=== PATIENT | female | born 1965 | race Caucasian/White ===

== ENCOUNTER 2017-08-04 21:38 | Emergency (ER) | payer BC ==
[2015-02-25 13:42] VITALS: Ht 170.2 cm; Wt 77.1 kg
[~2017-08-04] VITALS: Ht 170.2 cm; Wt 77.1 kg
[~2017-08-04 21:38] MED LIST: ACE500 PO; ACET-1935 PO; ADV100/50 INH; ADV250/50 INH; ALB17R INH; ALB18R INH; ALB6.7R INH; ALBU8.5H12 IH; ALP1 PO; AMI25 PO; AMO500 PO; AMOX-355 PO; AMOX-559 PO; ARTHRITIS MED; ATOR10TA24 PO; ATOR20TA22 PO; AUG250 PO; AUG875 PO; AZI250 PO; AZIT1PAC21 PO; AZIT500T47 PO; BAC10 PO; BACDS PO; BENZ100C4 PO; BENZ200C15 PO; BENZ200C38 PO; BUDE1AMP2 IH; BUTA1CAP7 PO; C PAP; CALC-1 PO; CALC-797 PO; CEP500 PO; CETI-169 PO; CETI10CA8 PO; CETI5TAB22 PO; CIPR-214 PO; CIPR-344 PO; CLO1 PO; CLO5 PO; CLON-303 *; COCO1000 PO; COLE625T15 PO; CYC10 PO; DAR100 PO; DEX4 PO; DIA5 PO; DIC10 PO; DICL-195 PO; DICY-42 PO; DICY10CA62 PO; DIP25 PO; DIPH-1 PO; DIV500 PO; DIVA250T83 PO; DIVA500T97 PO; DOCU-299 PO; DON PO; DOXY-179 PO; DOXY150T6 PO; DUL30 PO; DULO30CA35 PO; DULO60CA56 PO; EPIN0.3P14 IM; ESCI5TAB10 PO; EST3 PO; ESZO3TAB37 PO; EZE10 PO; EZET1TAB64 PO; FENT1PAT40 TD; FLU10 PO; FLUO40CA76 PO; FLUT16SP19 NS; FLUT1DIS27 IH; FORM20VI2 IH; FUR40 PO; GAB300 PO; GUALA600 PO; HYDR-317 PO; HYDR-3250 PO; HYDR-3613 PO; HYDR-4309 PO; HYDR25CA83 PO; HYDR473S4 PO; IBU600 PO; IBUP-1618 PO; IBUP-56 PO; IBUP800T37 PO; INDO-1 PO; ISOM1CAP94 PO; KET10 PO; LANS30CA70 PO; LEVO25TA56; LEVO25TA64 PO; LEVO50 PO; LEVO50TA86 PO; LIDO700A25 TP; LISI-362 PO; LIT300 PO; LOM PO; LOPE-147 PO; LOPE2CAP88 PO; LOR1 PO; LOR10/325 PO; LOR5/325 PO; LOR75 GT; LORA-1455 PO; LORA-941 PO; LORA10TA2 PO; MECL25TA9 PO; MELO-149; MELO-149 PO; MELO-150 PO; MELO-205 PO; MELO7.5O4 PO; MEP50 PO; MEPE50TA29 PO; MET850 PO; METH-542 PO; METH4TAB57 PO; METHO500 PO; METR-1 PO; MID PO; MOMR; MOMR ENA; MONT10TA22 PO; NAP250 PO; NAPR220C12 PO; NAS20R NS; NEURONTIN; NITR-1 PO; OMEG-97 PO; OMEP-125 PO; OMEP-153 PO; OMEP40CA45 PO; OND4 PO; ONDA4TAB PO; ONDA8TAB91 PO; OXYC-689 PO; OXYC-763 PO; OXYC-869 PO; OXYC-870 PO; OXYGEN; OXYGEN INH; OXYIR PO; PAL3PT PO; PAN20 PO; PAN40 PO; PENI-24 PO; PER PO; PERCOCET PO; PHEN120S16 PO; PHEN95TA10 PO; POTA99TA6 PO; PRA20 PO; PRE10 PO; PRE20 PO; PRE5 PO; PRED-1 PO; PRED-314 PO; PRED20TA6 PO; PREG75CA61 PO; PRO25 PO; PROAIRPT IH; PROP40TA45 PO; RANI-324 PO; RANI75TA5 PO; RISP-34 PO; ROS10 PO; SER50 PO; SILV20CR2 TP; SITA1TAB16 PO; SULF-120 PO; SULF-198 PO; TRA50 PO; TRAZ-133 PO; TRAZ-163 PO; TRAZ50 PO; VEN375 PO; VER100 PO; [UNRECOGNIZED DRUG - CODE] IM; [UNRECOGNIZED DRUG - CODE] PO; [UNRECOGNIZED DRUG - CODE] PO; [UNRECOGNIZED DRUG - OTHER]
--- NOTE | 2017-08-04 21:41 | ER Report ---
History and Physical Time Seen By MD: 21:40 HPI/ROS CHIEF COMPLAINT: Intermittent chest pain 4 days HISTORY OF PRESENT ILLNESS: 51-year-old female presents ambulatory to the ER complaining of intermittent chest pain for 4 days. She notes tonight is become constant and more intense. She's had some shortness of breath, some nausea but no diaphoresis. She states she has a history of bradycardia and was seen by Dr. Fofana, death surveys coder in the distant past. She does not have a pacemaker.. She notes a dull chest pain with occasional sharp shooting component. She describes it as it feels like an elephant sitting on her chest. She notes radiation to her left arm with some numbness. Patient denies other history of cardiac disease. She has history of fibromyalgia REVIEW OF SYSTEMS: Respiratory: No cough, no dyspnea. Cardiovascular: As above Gastrointestinal: As above Musculoskeletal: No back pain. Allergies: Coded Allergies: BEE STINGS (Verified Allergy, Severe, AIRWAY OBSTRUCTION, 08/04/17) erythromycin base (Verified Allergy, Severe, SEIZURES AND VOMITING, 08/04/17 ) hydromorphone (Verified Allergy, Severe, SWELLS UP LIKE A BALOON AND ITCHES REAL BAD, 08/04/17) ketorolac (Verified Allergy, Severe, VOMITING SWELLING UP EYES, 08/04/17) morphine (Verified Allergy, Severe, HEADACHES AND ITCHINESS AND SWELLING, 08/04/17) pregabalin (Verified Allergy, Severe, MIGRAINES, 08/04/17) sumatriptan (Verified Allergy, Severe, THROAT SWELLS SHUT AND SHE STOPS BREATHING, 08/04/17) codeine (Verified Allergy, Intermediate, HIVES AND ITCHINESS, 08/04/17) promethazine (Verified Allergy, Intermediate, 08/04/17) tramadol (Verified Allergy, Mild, NAUSEA, 08/04/17) nalbuphine (Verified Adverse Reaction, Mild, WIRED HER, 08/04/17) Home Meds Active Scripts Diphenoxylate Hcl/Atropine (LOMOTIL TABLET) 1 Each Tablet, 1 EACH PO 1-3XD, #30 TAB 3 Refills Prov:MANJULA BARRON SURGICAL SERVICES COORDINATOR-BC, ONC 04/23/17 Indomethacin (INDOMETHACIN) 25 Mg Capsule, 25 MG PO DIRECTED Y for HEADACHE, #30 CAPSULE Take 1 tab 30-60 minutes prior to activity Prov:KP MANN SURGICAL SERVICES COORDINATOR 04/20/17 Reported Medications Propranolol Hcl (PROPRANOLOL HCL) 40 Mg Tablet, 40 MG PO BID 05/14/17 Trazodone Hcl (TRAZODONE HCL) 100 Mg Tablet, 100 MG PO QHS, TAB 03/20/17 Duloxetine Hcl (CYMBALTA) 60 Mg Capsule.dr, 60 MG PO QDAY, #5 CAP 03/20/17 Atorvastatin Calcium (LIPITOR) 10 Mg Tablet, 1 TAB PO QDAY, TAB 03/20/17 Calcium Carbonate/Vitamin D3 (CALTRATE 600 + D TABLET) 1 Each Tablet, 1 EACH PO HS 08/08/16 Past Medical/Surgical History Patient has a past medical history of CVA, seizures, migraines, angina, hyperlipidemia, asthma, pneumonia, COPD, rectal cancer, reflux, cholelithiasis, urinary incontinence, osteomyelitis, fibromyalgia, osteoporosis, back pain, diabetes, hypothyroidism, alcohol use, suicidal ideation, depression, anxiety, anorexia, suicide attempt. Patient has a surgical history of carpal tunnel release, cyst removed, hysterectomy, hemorrhoid surgery, cholecystectomy, appendectomy, laparoscopy. Patient has a family medical history of cancer, CAD, diabetes. Reviewed Nurses Notes: Yes Old Medical Records Reviewed: Yes Hx Smoking: Yes (3-4 daily) Smoking Status: Current: Every Day Smoker Exposure to Second Hand Smoke?: Yes Hx Substance Use Disorder: No Hx Alcohol Use: Yes (rare) Constitutional Vital Sign - Last 24 Hours 08/04/17 08/04/17 08/04/17 08/04/17 21:44 21:45 22:00 22:30 Temp 98.4 Pulse 67 Resp 18 B/P (MAP) 135/70 135/70 (91) 116/89 (98) 121/56 (77) Pulse Ox 93 O2 Delivery Room Air 08/04/17 08/04/17 08/04/17 08/04/17 22:38 22:58 22:58 23:00 Pulse 66 60 Resp 13 17 B/P (MAP) 107/59 (75) Pulse Ox 88 92 O2 Flow Rate 1.0 08/04/17 08/04/17 08/04/17 23:13 23:26 23:28 Pulse 61 64 Resp 19 9 B/P (MAP) 99/50 (66) Pulse Ox 92 Physical Exam Vital signs stable, afebrile, pulse ox normal General Appearance: The patient is alert, has no immediate need for airway protection and no current signs of toxicity. Mild distress HEENT: Pupils equal and round no injection. TMs normal, oropharynx without redness or exudate Respiratory: Chest is non tender, lungs are clear to auscultation. Chest wall tenderness noted on palpation along the costosternal margin, especially on the left sternal border Cardiac: regular rate and rhythm, no murmur Gastrointestinal: Abdomen is soft and non tender, no masses, bowel sounds normal. Musculoskeletal: Neck: Neck is supple and non tender. No lymphadenopathy Extremities have full range of motion and are non tender. No edema, no calf tenderness Skin: No rashes or lesions. DIFFERENTIAL DIAGNOSIS: After history and physical exam differential diagnosis was considered for chest pain including but not limited to myocardial ischemia, pericarditis pulmonary embolus, chest wall pain, pleural inflammation and pulmonary infectious causes. Medical Decision Making Data Points Result Diagram: 08/04/17220108/04/172201 Laboratory Hematology Test 08/04/17 22:02 Red Blood Count 4.82 M/uL (4.17-5.56) Mean Corpuscular Volume 89.1 fL (80.0-96.0) Mean Corpuscular Hemoglobin 30.5 pg (26.0-33.0) Mean Corpuscular Hemoglobin Concent 34.3 g/dL (32.0-36.0) Red Cell Distribution Width 13.6 % (11.5-14.5) Mean Platelet Volume 7.4 fL (7.2-11.1) Neutrophils (%) (Auto) 68.6 % (39.4-72.5) Lymphocytes (%) (Auto) 22.2 % (17.6-49.6) Monocytes (%) (Auto) 6.0 % (4.1-12.4) Eosinophils (%) (Auto) 2.2 % (0.4-6.7) Basophils (%) (Auto) 1.0 % (0.3-1.4) Nucleated RBC Relative Count (auto) 0.0 /100WBC Neutrophils # (Auto) 7.6 K/uL (2.0-7.4) Lymphocytes # (Auto) 2.5 K/uL (1.3-3.6) Monocytes # (Auto) 0.7 K/uL (0.3-1.0) Eosinophils # (Auto) 0.2 K/uL (0.0-0.5) Basophils # (Auto) 0.1 K/uL (0.0-0.1) Nucleated RBC Absolute Count (auto) 0.00 K/uL D-Dimer Quantitative (PE/DVT) < 0.27 ug/ml (0-0.50) Sodium Level 142 mmol/L (137-145) Potassium Level 3.5 mmol/L (3.5-5.0) Chloride Level 106 mmol/L (98-107) Carbon Dioxide Level 28 mmol/L (22-31) Blood Urea Nitrogen 12 mg/dl (7-18) Creatinine 0.70 mg/dl (0.52-1.04) Glomerular Filtration Rate Calc > 60.0 Random Glucose 108 mg/dl (75-110) Calcium Level 9.0 mg/dl (8.4-10.2) Total Bilirubin 0.3 mg/dl (0.2-1.3) Aspartate Amino Transf (AST/SGOT) 24 U/L (0-35) Alanine Aminotransferase (ALT/SGPT) 26 U/L (0-56) Alkaline Phosphatase 106 U/L (0-126) Troponin I < 0.012 ng/ml B-Type Natriuretic Peptide 113 pg/ml (0-100) Total Protein 6.6 gm/dl (6.3-8.2) Albumin 3.7 g/dl (3.5-5.0) Chemistry Test 08/04/17 22:02 White Blood Count 11.1 k/uL (4.5-11.0) Red Blood Count 4.82 M/uL (4.17-5.56) Hemoglobin 14.7 g/dL (12.0-16.0) Hematocrit 42.9 % (34.0-47.0) Mean Corpuscular Volume 89.1 fL (80.0-96.0) Mean Corpuscular Hemoglobin 30.5 pg (26.0-33.0) Mean Corpuscular Hemoglobin Concent 34.3 g/dL (32.0-36.0) Red Cell Distribution Width 13.6 % (11.5-14.5) Platelet Count 276 K/uL (150-450) Mean Platelet Volume 7.4 fL (7.2-11.1) Neutrophils (%) (Auto) 68.6 % (39.4-72.5) Lymphocytes (%) (Auto) 22.2 % (17.6-49.6) Monocytes (%) (Auto) 6.0 % (4.1-12.4) Eosinophils (%) (Auto) 2.2 % (0.4-6.7) Basophils (%) (Auto) 1.0 % (0.3-1.4) Nucleated RBC Relative Count (auto) 0.0 /100WBC Neutrophils # (Auto) 7.6 K/uL (2.0-7.4) Lymphocytes # (Auto) 2.5 K/uL (1.3-3.6) Monocytes # (Auto) 0.7 K/uL (0.3-1.0) Eosinophils # (Auto) 0.2 K/uL (0.0-0.5) Basophils # (Auto) 0.1 K/uL (0.0-0.1) Nucleated RBC Absolute Count (auto) 0.00 K/uL D-Dimer Quantitative (PE/DVT) < 0.27 ug/ml (0-0.50) Glomerular Filtration Rate Calc > 60.0 Calcium Level 9.0 mg/dl (8.4-10.2) Total Bilirubin 0.3 mg/dl (0.2-1.3) Aspartate Amino Transf (AST/SGOT) 24 U/L (0-35) Alanine Aminotransferase (ALT/SGPT) 26 U/L (0-56) Alkaline Phosphatase 106 U/L (0-126) Troponin I < 0.012 ng/ml B-Type Natriuretic Peptide 113 pg/ml (0-100) Total Protein 6.6 gm/dl (6.3-8.2) Albumin 3.7 g/dl (3.5-5.0) Coagulation Test 08/04/17 22:02 D-Dimer Quantitative (PE/DVT) < 0.27 ug/ml EKG/Imaging EKG Interpretation 12 lead EK, O2 Rhythm: normal sinus rhythm [place]: normal QRS: normal ST segments: normal, no evidence of ischemia or dysrhythmia, diffuse T- wave flattening Imaging X-ray: Two-view chest x-ray was obtained. I viewed the images myself on the PACS system. My interpretation of the images is: No infiltrate, no effusion, normal mediastinum. The radiologist interpretation had no clinically significant variation from this interpretation. ED Course/Re-evaluation Clinical Indication for ER IV: IV Access ED Course Patient was admitted to an examination room. H&P was done. The differential diagnoses was considered. On clinical examination. Patient has mild chest wall tenderness. She does have history of fibromyalgia. An EKG is performed which is unremarkable. Diagnostic studies show normal troponin and d-dimer. Patient's BMP is mildly elevated. Her chest x-ray is clear. Patient declines medication for pain relief. She has numerous allergies and sensitivities. Patient's results are discussed with her. She is reassured that she has no serious medical problems involved in pulmonary embolism or cardiac issues. She is advised to take ibuprofen for pain relief which she states she can take. She was offered steroids in case this is a flare of her fibromyalgia, but she declined. Patient's advised to follow-up with primary care if unimproved in 3- 5 days. Decision to Disposition Date: Aug 04, 2017 Decision to Disposition Time: 23:19 Depart Departure Latest Vital Signs Vital Signs Date Time Temp Pulse Resp B/P (MAP) Pulse Ox O2 Delivery O2 Flow Rate FiO2 08/04/17 23:28 64 9 08/04/17 23:26 99/50 (66) 08/04/17 23:13 92 08/04/17 22:58 1.0 08/04/17 21:44 98.4 Room Air Impression: Primary Impression: Chest pain of unknown etiology Additional Impression: History of fibromyalgia Condition: Improved Disposition: HOME OR SELF-CARE Patient Instructions: Chest Wall Pain (ED) Additional Instructions: Take ibuprofen 200 mg 3 tablets 3 times a day with food Apply heating pad to the affected area Follow-up with your primary care Dr. Yi if unimproved in 3-5 days Problem Qualifiers ASAD COLEMAN DO Aug 04, 2017 21:40
[2017-08-04] MEDS ORDERED: ASPIRIN 81 MG CHEW PO ONE (21:55)
[2017-08-04] MEDS ORDERED: ONDANSETRON 4 MG/2 ML VIAL IVP ONE (21:55)
[2017-08-04] MEDS ORDERED: KETOROLAC 30 MG/ML VIAL IVP ONE (21:55)
[2017-08-04 22:13] LABS: PLATELET COUNT, AUTOMATED 276 K/uL (150-450)
--- NOTE | 2017-08-04 22:34 | RADIOLOGY IMAGING REPORT ---
FAC[place] [facility] [place]IENT NAME: Sugar Charles : 1965 MR: [id number] V: [id number] EXAM DATE: ORDERING PHYSICIAN: ASAD COLEMAN TECHNOLOGIST: Location: [facility] - [place] Patient: Sugar Charles : 1965 Visit/Account:[id number] Date of Sevice: 08/04/2017 EXAMINATION: Chest 2 Views HISTORY: Chest pain. COMPARISON: 02/03/2017. FINDINGS: The lungs are clear. No focal consolidation or pleural fluid. No pneumothorax. Normal cardiomedias tinal silhouette, with normal heart size and pulmonary vascularity. Visualized osseous structures ar e unremarkable. IMPRESSION: Negative chest. Report Dictated By: Yuan Krueger MD at 08/04/2017 10:27 PM Report E-Signed By: Yuan Krueger MD at 08/04/2017 10:29 PM [id number]
[2017-08-04 23:26] VITALS: BP 99/50
--- NOTE | 2017-08-05 00:31 | EKG ---
FACILITY: [facility] PATIENT NAME: HUY REEVES : [id number] MR: [id number] V: [id number] EXAM DATE: ORDERING PHYSICIAN: ASAD COLEMAN TECHNOLOGIST: NERI Minor Reason : CARDIAC Blood Pressure : / mmHG Vent. Rate : 062 BPM Atrial Rate : 062 BPM P-R Int : 148 ms QRS Dur : 088 ms QT Int : 424 ms P-R-T Axes : 048 053 032 degrees QTc Int : 430 ms Normal sinus rhythm Poor R wave progression Abnormal ECG When compared with ECG of 03-FEB-2017 14:07, No significant change was found Confirmed by MELLISA VO ([id number]) on 08/05/2017 6:49:55 AM Referred By: Confirmed By:MELLISA VO
== END 2017-08-04 23:33 | disposition home or self-care (01) ==
LOC: ER 21:41
DX: R07.89 Other chest pain (principal)
CPT/HCPCS: 71046; 83880; 84484; 85025; 85379; 93005; 96374; 99284; J2405; 82040; 82247; 82310; 82374; 82435; 82565; 82947; 84075; 84132; 84155; 84295; 84450; 84460; 84520

== ENCOUNTER 2017-09-01 07:12 | Emergency (ER) | payer BC ==
[2015-02-25 13:42] VITALS: Ht 165.1 cm; Wt 79.8 kg
[~2017-09-01] VITALS: Ht 165.1 cm; Wt 79.8 kg
--- NOTE | 2017-09-01 07:27 | ER Report ---
History and Physical Time Seen By MD: 07:27 Hx. of Stated Complaint: RED, ITCHY BUMPS ON CHEST AND LEGS HPI/ROS CHIEF COMPLAINT: rash HISTORY OF PRESENT ILLNESS: This is a 51 year old female. She has a rash, mainly on chest/abdominal area, but also on legs, arms and back. Very itch. Started about 4 weeks ago after traveling. No other family members with the rash. Has been seen for this. Has been using oral benadryl, benadryl cream, and was put on a course of Prednisone which did not help. No recent illnesses. No shortness of breath or cough. No problems with urination. Bowels alternate between constipation and diarrhea, but this is normal for her. No chest pains. No musculoskeletal pain with this. Allergies: Coded Allergies: BEE STINGS (Verified Allergy, Severe, AIRWAY OBSTRUCTION, 08/04/17) erythromycin base (Verified Allergy, Severe, SEIZURES AND VOMITING, 08/04/17 ) hydromorphone (Verified Allergy, Severe, SWELLS UP LIKE A BALOON AND ITCHES REAL BAD, 08/04/17) ketorolac (Verified Allergy, Severe, VOMITING SWELLING UP EYES, 08/04/17) morphine (Verified Allergy, Severe, HEADACHES AND ITCHINESS AND SWELLING, 08/04/17) pregabalin (Verified Allergy, Severe, MIGRAINES, 08/04/17) sumatriptan (Verified Allergy, Severe, THROAT SWELLS SHUT AND SHE STOPS BREATHING, 08/04/17) codeine (Verified Allergy, Intermediate, HIVES AND ITCHINESS, 08/04/17) promethazine (Verified Allergy, Intermediate, 08/04/17) tramadol (Verified Allergy, Mild, NAUSEA, 08/04/17) nalbuphine (Verified Adverse Reaction, Mild, WIRED HER, 08/04/17) Home Meds Active Scripts Betamethasone Dip (BETAMETHASONE DIPROPIONATE) 15 Gm Cr, 15 GM TOP BID Y for ITCHING, #1 TUBE 0 Refills Prov:KALANI SHANNON MD 09/01/17 Sulfamethoxazole/Trimet 800-160 Mg Tab (BACTRIM DS TABLET) 1 Each Tablet, 1 TAB PO Q12H, #14 TAB 0 Refills Prov:KALANI SHANNON MD 09/01/17 Diphenoxylate Hcl/Atropine (LOMOTIL TABLET) 1 Each Tablet, 1 EACH PO 1-3XD, #30 TAB 3 Refills Prov:ANDERSONMANJULA Lacey METAL TANK ERECTOR-BC, ONC 04/23/17 Reported Medications Propranolol Hcl (PROPRANOLOL HCL) 40 Mg Tablet, 40 MG PO BID 05/14/17 Trazodone Hcl (TRAZODONE HCL) 100 Mg Tablet, 100 MG PO QHS, TAB 03/20/17 Duloxetine Hcl (CYMBALTA) 60 Mg Capsule.dr, 60 MG PO QDAY, #5 CAP 03/20/17 Atorvastatin Calcium (LIPITOR) 10 Mg Tablet, 1 TAB PO QDAY, TAB 03/20/17 Calcium Carbonate/Vitamin D3 (CALTRATE 600 + D TABLET) 1 Each Tablet, 1 EACH PO HS 08/08/16 Discontinued Scripts Indomethacin (INDOMETHACIN) 25 Mg Capsule, 25 MG PO DIRECTED Y for HEADACHE, #30 CAPSULE Take 1 tab 30-60 minutes prior to activity Prov:KP MANN METAL TANK ERECTOR 04/20/17 Reviewed Nurses Notes: Yes Hx Smoking: Yes (3-4 daily) Smoking Status: Current: Every Day Smoker Exposure to Second Hand Smoke?: Yes Hx Substance Use Disorder: No Hx Alcohol Use: Yes (rare) Constitutional Vital Sign - Last 24 Hours 09/01/17 09/01/17 09/01/17 09/01/17 07:19 07:20 07:30 08:00 Temp 97.7 Pulse 57 49 Resp 18 B/P (MAP) 121/60 (80) 121/60 123/70 (87) 125/72 (89) Pulse Ox 98 94 O2 Delivery Room Air 09/01/17 09/01/17 08:30 08:51 Pulse 57 B/P (MAP) 134/75 (94) 132/74 (93) Pulse Ox 92 Intake and Output 09/01/17 09/01/17 09/02/17 15:00 23:00 07:00 Intake Total 1000 ml Balance 1000 ml Physical Exam General Appearance: The patient is alert, has no immediate need for airway protection and no current signs of toxicity. Eyes: Pupils equal and round no injection. ENT: Normal oral mucosa. Moist mucous membranes. Tympanic membranes are normal. Neck: Neck is supple and non tender. Respiratory: Chest is non tender, lungs are clear to auscultation. Cardiac: regular rate and rhythm Gastrointestinal: Abdomen is soft and non tender. Musculoskeletal: Extremities have full range of motion. Non tender. Skin: Scattered areas, mainly on abdomen and breasts, redness that appears to surround follicles, some with central area that could be follicle or bite, inflammatory changes around this with some swelling around the area and redness. Some on breast, some on legs, mainly the upper legs. DIFFERENTIAL DIAGNOSIS: After history and physical exam differential diagnosis was considered for rash that could be bites with inflammatory response, but could be folliculitis. Does not look like a generalized allergic reaction or contact dermatitis. Does not look like Scabies. Medical Decision Making Data Points Result Diagram: 09/01/17 0749 09/01/17 0749 Laboratory Hematology Test 09/01/17 07:49 Red Blood Count 5.07 M/uL (4.17-5.56) Mean Corpuscular Volume 88.8 fL (80.0-96.0) Mean Corpuscular Hemoglobin 30.9 pg (26.0-33.0) Mean Corpuscular Hemoglobin Concent 34.8 g/dL (32.0-36.0) Red Cell Distribution Width 14.0 % (11.5-14.5) Mean Platelet Volume 7.5 fL (7.2-11.1) Neutrophils (%) (Auto) 68.9 % (39.4-72.5) Lymphocytes (%) (Auto) 20.1 % (17.6-49.6) Monocytes (%) (Auto) 8.2 % (4.1-12.4) Eosinophils (%) (Auto) 1.8 % (0.4-6.7) Basophils (%) (Auto) 1.0 % (0.3-1.4) Nucleated RBC Relative Count (auto) 0.0 /100WBC Neutrophils # (Auto) 5.6 K/uL (2.0-7.4) Lymphocytes # (Auto) 1.6 K/uL (1.3-3.6) Monocytes # (Auto) 0.7 K/uL (0.3-1.0) Eosinophils # (Auto) 0.1 K/uL (0.0-0.5) Basophils # (Auto) 0.1 K/uL (0.0-0.1) Nucleated RBC Absolute Count (auto) 0.00 K/uL Erythrocyte Sedimentation Rate 7 mm/HOUR (0-30) Sodium Level 141 mmol/L (137-145) Potassium Level 3.7 mmol/L (3.5-5.0) Chloride Level 108 mmol/L (98-107) Carbon Dioxide Level 22 mmol/L (22-31) Blood Urea Nitrogen 12 mg/dl (7-18) Creatinine 0.80 mg/dl (0.52-1.04) Glomerular Filtration Rate Calc > 60.0 Random Glucose 92 mg/dl (75-110) Calcium Level 9.5 mg/dl (8.4-10.2) Total Bilirubin 0.5 mg/dl (0.2-1.3) Aspartate Amino Transf (AST/SGOT) 21 U/L (0-35) Alanine Aminotransferase (ALT/SGPT) 27 U/L (0-56) Alkaline Phosphatase 99 U/L (0-126) C-Reactive Protein 0.7 mg/dl (<1.0) Total Protein 6.9 gm/dl (6.3-8.2) Albumin 3.9 g/dl (3.5-5.0) Chemistry Test 09/01/17 07:49 White Blood Count 8.1 k/uL (4.5-11.0) Red Blood Count 5.07 M/uL (4.17-5.56) Hemoglobin 15.7 g/dL (12.0-16.0) Hematocrit 45.0 % (34.0-47.0) Mean Corpuscular Volume 88.8 fL (80.0-96.0) Mean Corpuscular Hemoglobin 30.9 pg (26.0-33.0) Mean Corpuscular Hemoglobin Concent 34.8 g/dL (32.0-36.0) Red Cell Distribution Width 14.0 % (11.5-14.5) Platelet Count 283 K/uL (150-450) Mean Platelet Volume 7.5 fL (7.2-11.1) Neutrophils (%) (Auto) 68.9 % (39.4-72.5) Lymphocytes (%) (Auto) 20.1 % (17.6-49.6) Monocytes (%) (Auto) 8.2 % (4.1-12.4) Eosinophils (%) (Auto) 1.8 % (0.4-6.7) Basophils (%) (Auto) 1.0 % (0.3-1.4) Nucleated RBC Relative Count (auto) 0.0 /100WBC Neutrophils # (Auto) 5.6 K/uL (2.0-7.4) Lymphocytes # (Auto) 1.6 K/uL (1.3-3.6) Monocytes # (Auto) 0.7 K/uL (0.3-1.0) Eosinophils # (Auto) 0.1 K/uL (0.0-0.5) Basophils # (Auto) 0.1 K/uL (0.0-0.1) Nucleated RBC Absolute Count (auto) 0.00 K/uL Erythrocyte Sedimentation Rate 7 mm/HOUR (0-30) Glomerular Filtration Rate Calc > 60.0 Calcium Level 9.5 mg/dl (8.4-10.2) Total Bilirubin 0.5 mg/dl (0.2-1.3) Aspartate Amino Transf (AST/SGOT) 21 U/L (0-35) Alanine Aminotransferase (ALT/SGPT) 27 U/L (0-56) Alkaline Phosphatase 99 U/L (0-126) C-Reactive Protein 0.7 mg/dl (<1.0) Total Protein 6.9 gm/dl (6.3-8.2) Albumin 3.9 g/dl (3.5-5.0) ED Course/Re-evaluation Clinical Indication for ER IV: IV Access ED Course Labs unremarkable. Some improvement with Solu-Medrol and Benadryl IV. Appears to be most likely a folliculitis with inflammatory response. Doubt that this is a bug bite as no one else in the family has this, although the morphology of the skin lesions does resemble this. It does not appear to be a generalized allergic reaction or a contact dermatitis. Trial of Medrol dose pack, Bactrim and topical betamethasone cream and follow-up with Dr. Yi as planned. May need to consider a dermatology referral. Decision to Disposition Date: Sep 01, 2017 Decision to Disposition Time: 08:44 Depart Departure Latest Vital Signs Vital Signs Date Time Temp Pulse Resp B/P (MAP) Pulse Ox O2 Delivery O2 Flow Rate FiO2 09/01/17 08:51 132/74 (93) 09/01/17 08:30 57 92 09/01/17 07:20 97.7 18 Room Air Impression: Primary Impression: Folliculitis Condition: Improved Disposition: HOME OR SELF-CARE New Scripts Betamethasone Dip (BETAMETHASONE DIPROPIONATE) 15 Gm Cr 15 GM TOP BID Y for ITCHING, #1 TUBE 0 Refills Prov: KALANI SHANNON MD 09/01/17 Sulfamethoxazole/Trimet 800-160 Mg Tab (BACTRIM DS TABLET) 1 Each Tablet 1 TAB PO Q12H, #14 TAB 0 Refills Prov: KALANI SHANNON MD 09/01/17 Patient Instructions: Folliculitis (ED) Additional Instructions: We think that your rash may be folliculitis with a significant inflammatory response. Take the antibiotic Bactrim DS twice a day for 7 days. Take the steroid pack, Medrol Dosepack, over the next 6 days. You can use a topical steroid called Betamethasone dipropionate 0.05% cream topically twice a day as needed for lesions that are very itchy. Keep using over the counter Benadryl 25mg tablets, 1-2 every 6 hours as needed for itching. Keep your follow-up appointment with Dr. Yi tomorrow and she can re- evaluate to see if there is any improvement. If not improving with these treatments, then follow-up with Dermatology will be needed. Dr. Dover is here at the [facility] this September 04. KALANI SHANNON MD Sep 01, 2017 07:27
[2017-09-01] MEDS ORDERED: NS(*) 0.9% 1000 ML BAG 1,000 ML IV ONE (07:40)
[2017-09-01] MEDS ORDERED: diphenhydrAMINE 50 MG/ML VIAL IVP ONE (07:40)
[2017-09-01] MEDS ORDERED: methylPREDNIS SUCC 125 MG/2ML IVP ONE (07:40)
[2017-09-01 08:03] LABS: PLATELET COUNT, AUTOMATED 283 K/uL (150-450)
[2017-09-01] MEDS ORDERED: SULF-198 PO (08:49)
[2017-09-01] MEDS ORDERED: BETD15T TOP (08:49)
[2017-09-01 08:51] VITALS: BP 132/74
== END 2017-09-01 09:10 | disposition home or self-care (01) ==
LOC: ER 07:20
DX: L73.9 Follicular disorder, unspecified (principal)
CPT/HCPCS: 85025; 85651; 86140; 96361; 96374; 96375; 99283; J1200; J2930; J7030; 82040; 82247; 82310; 82374; 82435; 82565; 82947; 84075; 84132; 84155; 84295; 84450; 84460; 84520

== ENCOUNTER 2017-09-06 18:45 | Emergency (ER) | payer BC ==
[2015-02-25 13:42] VITALS: BMI 35.3
[~2017-09-06 18:45] MED LIST changes: +BETD15T TOP
--- NOTE | 2017-09-06 18:57 | ER Report ---
History and Physical Time Seen By MD: 18:56 Hx. of Stated Complaint: Patient reporting a cough for the past two days. Pt has had a flu shot and reports a fever. Has been taking ibuprofin. Pt is currently refusing cardiac telemetry monitoring. HPI/ROS CHIEF COMPLAINT: Fever, body aches, cough HISTORY OF PRESENT ILLNESS: 51-year-old female patient presents to emergency room with complaint of fever, body aches and cough. Patient states this been going on for the past 3 days. She states that she woke up was unable to go to work. She states that she spent the last 2 days in bed. She states she' s had sweats, fevers. She states that she fell she is going to pass out whenever she stood up. She states she's been feeling short of breath. She states she's had no energy. She feels like she is dehydrated. She states she's had fevers, there were greater than 100. She denies any nausea, vomiting or diarrhea. REVIEW OF SYSTEMS: Respiratory: As noted above Cardiovascular: No chest pain, no palpitations. Gastrointestinal: No vomiting, no abdominal pain. Musculoskeletal: Generalized body aches. Allergies: Coded Allergies: BEE STINGS (Verified Allergy, Severe, AIRWAY OBSTRUCTION, 08/04/17) erythromycin base (Verified Allergy, Severe, SEIZURES AND VOMITING, 08/04/17 ) hydromorphone (Verified Allergy, Severe, SWELLS UP LIKE A BALOON AND ITCHES REAL BAD, 08/04/17) ketorolac (Verified Allergy, Severe, VOMITING SWELLING UP EYES, 08/04/17) morphine (Verified Allergy, Severe, HEADACHES AND ITCHINESS AND SWELLING, 08/04/17) pregabalin (Verified Allergy, Severe, MIGRAINES, 08/04/17) sumatriptan (Verified Allergy, Severe, THROAT SWELLS SHUT AND SHE STOPS BREATHING, 08/04/17) codeine (Verified Allergy, Intermediate, HIVES AND ITCHINESS, 08/04/17) promethazine (Verified Allergy, Intermediate, 08/04/17) tramadol (Verified Allergy, Mild, NAUSEA, 08/04/17) nalbuphine (Verified Adverse Reaction, Mild, WIRED HER, 08/04/17) Home Meds Active Scripts Benzonatate (BENZONATATE) 200 Mg Capsule, 100 MG PO TID Y for COUGH, #15 CAP Prov:KP MANN [employer]PERVIS[employer] 09/06/17 Hydrocodone/Acetaminophen (Hydrocodon-Acetamin 7.5-325/15) 7.5 Mg-325 Mg/15 Ml Solution, 5 ML PO QHS Y for COUGH, #120 ML Prov:KP MANN [facility] 09/06/17 Betamethasone Dip (BETAMETHASONE DIPROPIONATE) 15 Gm Cr, 15 GM TOP BID Y for ITCHING, #1 TUBE 0 Refills Prov:KALANI SHANNON MD 09/01/17 Sulfamethoxazole/Trimet 800-160 Mg Tab (BACTRIM DS TABLET) 1 Each Tablet, 1 TAB PO Q12H, #14 TAB 0 Refills Prov:KALANI SHANNON MD 09/01/17 Diphenoxylate Hcl/Atropine (LOMOTIL TABLET) 1 Each Tablet, 1 EACH PO 1-3XD, #30 TAB 3 Refills Prov:MANJULA BARRON ETH[employer]LBENZENE CRACKING SUPERVISOR-BC, ONC 04/23/17 Reported Medications Propranolol Hcl (PROPRANOLOL HCL) 40 Mg Tablet, 40 MG PO BID 05/14/17 Trazodone Hcl (TRAZODONE HCL) 100 Mg Tablet, 100 MG PO QHS, TAB 03/20/17 Duloxetine Hcl (CYMBALTA) 60 Mg Capsule.dr, 60 MG PO QDAY, #5 CAP 03/20/17 Atorvastatin Calcium (LIPITOR) 10 Mg Tablet, 1 TAB PO QDAY, TAB 03/20/17 Calcium Carbonate/Vitamin D3 (CALTRATE 600 + D TABLET) 1 Each Tablet, 1 EACH PO HS 08/08/16 Discontinued Scripts Indomethacin (INDOMETHACIN) 25 Mg Capsule, 25 MG PO DIRECTED Y for HEADACHE, #30 CAPSULE Take 1 tab 30-60 minutes prior to activity Prov:KP MANN [facility] 04/20/17 Past Medical/Surgical History Patient has a past medical history of CVA, seizures, migraines, angina, hyperlipidemia, asthma, pneumonia, COPD, rectal cancer, reflux, urinary incontinence, possible myelitis, fibromyalgia, back pain, hypothyroidism, type 2 diabetes, alcohol use, depression, anxiety, suicidal ideation, anorexia. Patient has a surgical history of hysterectomy, carpal tunnel release, cyst removed, cholecystectomy, appendectomy, hemorrhoid surgery. Patient has a family medical history diabetes, CAD, cancer. Reviewed Nurses Notes: Yes Hx Smoking: Yes (3-4 daily) Smoking Status: Current: Every Day Smoker Exposure to Second Hand Smoke?: Yes Hx Substance Use Disorder: No Hx Alcohol Use: Yes (rare) Constitutional Vital Sign - Last 24 Hours 09/06/17 09/06/17 09/06/17 09/06/17 18:50 18:51 18:52 18:55 Temp 98.0 Pulse 61 57 Resp 18 B/P (MAP) 124/85 (98) Pulse Ox 98 97 97 O2 Delivery Room Air 09/06/17 09/06/17 09/06/17 09/06/17 19:00 19:05 19:10 19:15 Pulse 57 59 54 61 Pulse Ox 99 91 96 91 09/06/17 09/06/17 09/06/17 09/06/17 19:20 19:25 19:30 19:35 Pulse 57 ? Pulse Ox 94 98 09/06/17 09/06/17 09/06/17 09/06/17 19:40 19:45 19:46 19:50 Pulse ? 54 B/P (MAP) 114/67 (83) Pulse Ox 94 09/06/17 09/06/17 09/06/17 09/06/17 19:55 20:00 20:05 20:10 Pulse 56 56 57 61 B/P (MAP) 110/78 (89) Pulse Ox 91 85 94 94 09/06/17 09/06/17 09/06/17 09/06/17 20:15 20:20 20:25 20:30 Pulse 55 53 58 67 B/P (MAP) 134/110 (118) Pulse Ox 97 87 87 83 09/06/17 09/06/17 20:35 20:40 Pulse 53 70 B/P (MAP) 102/76 (85) Pulse Ox 93 93 Physical Exam General Appearance: The patient is alert, has no immediate need for airway protection and no current signs of toxicity. ENT: Tympanic membranes are pearly-jimenez, auditory canals are patent, mucous membranes are moist. Respiratory: Chest is non tender, lungs are clear to auscultation. Cardiac: regular rate and rhythm Gastrointestinal: Abdomen is soft and non tender, no masses, bowel sounds normal. Musculoskeletal: Neck: Neck is supple and non tender. Extremities have full range of motion and are non tender. Skin: No rashes or lesions. DIFFERENTIAL DIAGNOSIS: After history and physical exam differential diagnosis was considered for fever in adults including but not limited to pneumonia, urinary tract infection, viral syndrome, and influenza. Medical Decision Making Data Points Result Diagram: 09/06/17191709/06/171917 Laboratory Hematology Test 09/06/17 19:18 09/06/17 19:20 09/06/17 19:47 Red Blood Count 5.22 M/uL (4.17-5.56) Mean Corpuscular Volume 88.7 fL (80.0-96.0) Mean Corpuscular Hemoglobin 30.6 pg (26.0-33.0) Mean Corpuscular Hemoglobin Concent 34.5 g/dL (32.0-36.0) Red Cell Distribution Width 13.7 % (11.5-14.5) Mean Platelet Volume 7.5 fL (7.2-11.1) Neutrophils (%) (Auto) 69.9 % (39.4-72.5) Lymphocytes (%) (Auto) 15.3 % (17.6-49.6) Monocytes (%) (Auto) 12.5 % (4.1-12.4) Eosinophils (%) (Auto) 1.6 % (0.4-6.7) Basophils (%) (Auto) 0.7 % (0.3-1.4) Nucleated RBC Relative Count (auto) 0.1 /100WBC Neutrophils # (Auto) 4.4 K/uL (2.0-7.4) Lymphocytes # (Auto) 1.0 K/uL (1.3-3.6) Monocytes # (Auto) 0.8 K/uL (0.3-1.0) Eosinophils # (Auto) 0.1 K/uL (0.0-0.5) Basophils # (Auto) 0.0 K/uL (0.0-0.1) Nucleated RBC Absolute Count (auto) 0.01 K/uL Peripheral Blood Smear Yes Y/N Sodium Level 140 mmol/L (137-145) Potassium Level 3.8 mmol/L (3.5-5.0) Chloride Level 104 mmol/L (98-107) Carbon Dioxide Level 24 mmol/L (22-31) Blood Urea Nitrogen 19 mg/dl (7-18) Creatinine 1.00 mg/dl (0.52-1.04) Glomerular Filtration Rate Calc 58.7 Random Glucose 85 mg/dl (75-110) Calcium Level 9.2 mg/dl (8.4-10.2) Total Bilirubin 0.4 mg/dl (0.2-1.3) Aspartate Amino Transf (AST/SGOT) 19 U/L (0-35) Alanine Aminotransferase (ALT/SGPT) 31 U/L (0-56) Alkaline Phosphatase 98 U/L (0-126) C-Reactive Protein 2.5 mg/dl (<1.0) Total Protein 7.1 gm/dl (6.3-8.2) Albumin 3.8 g/dl (3.5-5.0) Influenza Virus Type A (PCR) Negative (NEGATIVE) Influenza Virus Type B (PCR) Negative (NEGATIVE) Urine Color Yellow Urine Clarity Clear Urine pH 5.0 pH (4.8-9.5) Urine Specific [place] 1.023 Urine Protein 30 mg/dL (NEGATIVE) Urine Glucose (UA) Negative mg/dL (NEGATIVE) Urine Ketones Negative mg/dL (NEGATIVE) Urine Blood Moderate (NEGATIVE) Urine Nitrite Negative (NEGATIVE) Urine Bilirubin Negative (NEGATIVE) Urine Urobilinogen Negative mg/dL (0.2-1.9) Urine Leukocyte Esterase Negative (NEGATIVE) Urine RBC 6 /HPF (0-2/HPF) Urine WBC 17 /HPF (0-5/HPF) Urine Squamous Epithelial Cells Many /LPF (</=FEW) Urine Bacteria Negative /HPF (NONE-FEW) Urine Mucus Few /HPF (NONE-FEW) Chemistry Test 09/06/17 19:18 09/06/17 19:20 09/06/17 19:47 White Blood Count 6.2 k/uL (4.5-11.0) Red Blood Count 5.22 M/uL (4.17-5.56) Hemoglobin 16.0 g/dL (12.0-16.0) Hematocrit 46.3 % (34.0-47.0) Mean Corpuscular Volume 88.7 fL (80.0-96.0) Mean Corpuscular Hemoglobin 30.6 pg (26.0-33.0) Mean Corpuscular Hemoglobin Concent 34.5 g/dL (32.0-36.0) Red Cell Distribution Width 13.7 % (11.5-14.5) Platelet Count 219 K/uL (150-450) Mean Platelet Volume 7.5 fL (7.2-11.1) Neutrophils (%) (Auto) 69.9 % (39.4-72.5) Lymphocytes (%) (Auto) 15.3 % (17.6-49.6) Monocytes (%) (Auto) 12.5 % (4.1-12.4) Eosinophils (%) (Auto) 1.6 % (0.4-6.7) Basophils (%) (Auto) 0.7 % (0.3-1.4) Nucleated RBC Relative Count (auto) 0.1 /100WBC Neutrophils # (Auto) 4.4 K/uL (2.0-7.4) Lymphocytes # (Auto) 1.0 K/uL (1.3-3.6) Monocytes # (Auto) 0.8 K/uL (0.3-1.0) Eosinophils # (Auto) 0.1 K/uL (0.0-0.5) Basophils # (Auto) 0.0 K/uL (0.0-0.1) Nucleated RBC Absolute Count (auto) 0.01 K/uL Peripheral Blood Smear Yes Y/N Glomerular Filtration Rate Calc 58.7 Calcium Level 9.2 mg/dl (8.4-10.2) Total Bilirubin 0.4 mg/dl (0.2-1.3) Aspartate Amino Transf (AST/SGOT) 19 U/L (0-35) Alanine Aminotransferase (ALT/SGPT) 31 U/L (0-56) Alkaline Phosphatase 98 U/L (0-126) C-Reactive Protein 2.5 mg/dl (<1.0) Total Protein 7.1 gm/dl (6.3-8.2) Albumin 3.8 g/dl (3.5-5.0) Influenza Virus Type A (PCR) Negative (NEGATIVE) Influenza Virus Type B (PCR) Negative (NEGATIVE) Urine Color Yellow Urine Clarity Clear Urine pH 5.0 pH (4.8-9.5) Urine Specific [place] 1.023 Urine Protein 30 mg/dL (NEGATIVE) Urine Glucose (UA) Negative mg/dL (NEGATIVE) Urine Ketones Negative mg/dL (NEGATIVE) Urine Blood Moderate (NEGATIVE) Urine Nitrite Negative (NEGATIVE) Urine Bilirubin Negative (NEGATIVE) Urine Urobilinogen Negative mg/dL (0.2-1.9) Urine Leukocyte Esterase Negative (NEGATIVE) Urine RBC 6 /HPF (0-2/HPF) Urine WBC 17 /HPF (0-5/HPF) Urine Squamous Epithelial Cells Many /LPF (</=FEW) Urine Bacteria Negative /HPF (NONE-FEW) Urine Mucus Few /HPF (NONE-FEW) Urinalysis Test 09/06/17 19:47 Urine Color Yellow Urine Clarity Clear Urine pH 5.0 pH (4.8-9.5) Urine Specific [place] 1.023 Urine Protein 30 mg/dL (NEGATIVE) Urine Glucose (UA) Negative mg/dL (NEGATIVE) Urine Ketones Negative mg/dL (NEGATIVE) Urine Blood Moderate (NEGATIVE) Urine Nitrite Negative (NEGATIVE) Urine Bilirubin Negative (NEGATIVE) Urine Urobilinogen Negative mg/dL (0.2-1.9) Urine Leukocyte Esterase Negative (NEGATIVE) Urine RBC 6 /HPF (0-2/HPF) Urine WBC 17 /HPF (0-5/HPF) Urine Squamous Epithelial Cells Many /LPF (</=FEW) Urine Bacteria Negative /HPF (NONE-FEW) Urine Mucus Few /HPF (NONE-FEW) EKG/Imaging Imaging EXAMINATION: Chest 2 Views HISTORY: Fever. COMPARISON: 08/04/2017. FINDINGS: The lungs are clear. No focal consolidation or pleural fluid. No pneumothorax. Normal cardiomediastinal silhouette, with normal heart size and pulmonary vascularity. Visualized osseous structures are unremarkable. IMPRESSION: No evidence of acute cardiopulmonary disease. Stable exam. Report Dictated By: Yuan Krueger MD at 09/06/2017 7:42 PM Report E-Signed By: Yuan Krueger MD at 09/06/2017 7:42 PM ED Course/Re-evaluation ED Course Patient was admitted to exam room, history and physical were obtained. Differential diagnoses were considered. Reexamination patient has no obvious tenderness, lungs are clear to auscultation. A CBC, CMP, influenza screen, chest x-ray were done. Chest x-ray was negative. Lab results were unremarkable. Patient was negative for influenza. I was expecting with the history that the patient was going positive for influenza. However with it being negative I believe we're looking at a viral syndrome. We will have her treat symptoms, get plenty of rest. Patient states that she was having significant chest pain secondary to coughing. We'll go ahead and treat that with hydrocodone elixir at nighttime. She is to use Tessalon Perles during the day. She is to follow-up with her primary care provider next week. Patient verbalized understanding and agreement with plan. Decision to Disposition Date: Sep 06, 2017 Decision to Disposition Time: 20:12 Depart Departure Latest Vital Signs Vital Signs Date Time Temp Pulse Resp B/P (MAP) Pulse Ox O2 Delivery O2 Flow Rate FiO2 09/06/17 20:40 70 102/76 (85) 93 09/06/17 18:51 98.0 18 Room Air Impression: Primary Impression: Viral syndrome Condition: Improved Disposition: HOME OR SELF-CARE New Scripts Benzonatate (BENZONATATE) 200 Mg Capsule 100 MG PO TID Y for COUGH, #15 CAP Prov: KP MANN 09/06/17 Hydrocodone/Acetaminophen (Hydrocodon-Acetamin 7.5-325/15) 7.5 Mg-325 Mg/15 Ml Solution 5 ML PO QHS Y for COUGH, #120 ML Prov: KP MANN 09/06/17 Patient Instructions: Viral Syndrome (ED) Additional Instructions: Increase fluid intake. Get plenty of rest. Take Tylenol or Ibuprofen as needed for fever or pain. Follow up with your primary care provider in the next week. This is likely a virus that is similar to the flu, as you are having all of the symptoms with a negative flu. Return to the ER if condition worsens. KP MANN Sep 06, 2017 18:57
[2017-09-06] MEDS ORDERED: NS(*) 0.9% 1000 ML BAG 1,000 ML IV ONE (19:03)
[2017-09-06 19:26] LABS: PLATELET COUNT, AUTOMATED 219 K/uL (150-450)
--- NOTE | 2017-09-06 19:46 | RADIOLOGY IMAGING REPORT ---
FACILITY: [facility] PATIENT NAME: Sugar Charles : 1965 MR: [id number] V: [id number] EXAM DATE: ORDERING PHYSICIAN: KP MANN TECHNOLOGIST: Location: [facility] [place] Patient: Sugar Charles : 1965 Visit/Account:[id number] Date of Sevice: 09/06/2017 EXAMINATION: Chest 2 Views HISTORY: Fever. COMPARISON: 08/04/2017. FINDINGS: The lungs are clear. No focal consolidation or pleural fluid. No pneumothorax. Normal cardiomedias tinal silhouette, with normal heart size and pulmonary vascularity. Visualized osseous structures ar e unremarkable. IMPRESSION: No evidence of acute cardiopulmonary disease. Stable exam. Report Dictated By: Yuan Krueger MD at 09/06/2017 7:42 PM Report E-Signed By: Yuan Krueger MD at 09/06/2017 7:42 PM WSN:[id number]
[2017-09-06] MEDS ORDERED: HYDR118S3 PO (20:19)
[2017-09-06] MEDS ORDERED: BENZ200C15 PO (20:19)
[2017-09-06] MEDS ORDERED: HYDROCOD/ACETAMIN 2.5-108/5 ML 5 ML UDC PO ONE (20:25)
[2017-09-06 20:40] VITALS: BP 102/76
== END 2017-09-06 20:53 | disposition home or self-care (01) ==
LOC: ER 18:51
DX: B34.9 Viral infection, unspecified (principal)
CPT/HCPCS: 71046; 81001; 85025; 86140; 87502; 99284; J7030; 82040; 82247; 82310; 82374; 82435; 82565; 82947; 84075; 84132; 84155; 84295; 84450; 84460; 84520

== ENCOUNTER → 2017-10-10 | Outpatient (CLI) | payer BC ==
[2015-02-25 13:42] VITALS: BMI 35.3
[~2017-10-10] MED LIST changes: +HYDR118S3 PO; +HYDR15OI21 TP
== END ==
LOC: RESP 19:41
PROVIDERS: ATTEND Family Medicine
DX: G47.33 Obstructive sleep apnea (adult) (pediatric) (principal); G47.36 Sleep related hypoventilation in conditions classified elsewhere; E66.3 Overweight

== ENCOUNTER → 2017-10-24 | Outpatient (CLI) | payer BC ==
[2015-02-25 13:42] VITALS: BMI 35.3
== END ==
LOC: RESP 19:43
PROVIDERS: ATTEND Family Medicine
DX: G47.33 Obstructive sleep apnea (adult) (pediatric) (principal); E66.3 Overweight

== ENCOUNTER 2018-01-09 16:06 | Outpatient (RCR) | payer SELFPAY ==
[2015-02-25 13:42] VITALS: Wt 80.1 kg
[2017-10-16 09:10] VITALS: BP 138/76
[2017-10-16 09:46] LABS: PLATELET COUNT, AUTOMATED 284 K/uL (150-450)
[2017-10-17 15:35] VITALS: BP 136/75
--- NOTE | 2017-10-17 18:23 | ONCOLOGY FOLLOW UP NOTE ---
EVENT DATE: October 17, 2017 DIAGNOSES 1. 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 2. Fibromyalgia. 3. Depression. 4. Anxiety. 5. Osteoarthritis. 6. Type 2 diabetes. 7. Chronic obstructive pulmonary disease/asthma. CHIEF COMPLAINT The patient is here today for followup of her anal carcinoma. ONCOLOGY HISTORY Sugar Charles is a 51-year-old female. PRESENTATION Lower pelvic pressure and a decrease in caliber of stools with a small amount of blood with bowel movements. DIAGNOSTIC EVALUATION Endoscopic evaluation by Dr. Wilkes done January 12, 2015, upper endoscopy was also done. By endoscopy, there was no discrete mass but an area of firmness in the anal canal. Biopsy was done. This area measured about 0.5 cm. 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 Tumor is human papillomavirus positive, p16. STAGING WORKUP PET/CT scan done on January 25, 2015, revealed focal uptake in the anal canal with SUV of 4 but no local or systemic metastasis. STAGE T1/T2 N0 M0. TREATMENT The patient received chemoradiation. She received two cycles of mitomycin, 5-FU , leucovorin between February 15, 2015 through March 17, 2015. HISTORY OF PRESENT ILLNESS The patient is here today for followup of her anal carcinoma. She is complaining of runny nose, cough with expectoration sometimes. She has also diarrhea nearly on a daily basis. She has generalized musculoskeletal pain from her fibromyalgia, and she is also having extreme fatigue with that. PAST MEDICAL HISTORY 1. Fibromyalgia diagnosed 2003. 2. Osteoarthritis. 3. Type 2 diabetes. 4. COPD. 5. Asthma. 6. Chronic anxiety. 7. Hypercholesterolemia. 8. Osteoporosis. 9. History of depression. PAST SURGICAL HISTORY 1. Hemorrhoidectomy. 2. Multiple laparoscopic surgeries. 3. Cholecystectomy. 4. Two partial hysterectomies. 5. Appendectomy. 6. Resection of cyst removal from a finger. FAMILY HISTORY Mother had breast cancer, and a maternal grandfather with some sort of cancer. SOCIAL HISTORY The patient is a with one daughter and one step-son. She is unemployed. She is a smoker who is up to half-pack a day for 30 years. Denies any abuse of alcohol or illicit drugs. CURRENT MEDICATIONS 1. Robaxin 500 mg twice daily. 2. Albuterol 6.7 gm inhaler, one to two puffs as needed. 3. Zyrtec 10 mg daily. 4. Cymbalta 60 mg daily. 5. Trazodone 150 mg at bedtime. 6. Calcium/vitamin D 600 mg one tablet daily. 7. Protonix 20 mg daily. 8. Levothyroxine 25 mcg daily. ALLERGIES CODEINE, ERYTHROMYCIN BASE, HYDROMORPHONE, KETOROLAC, MORPHINE, NALBUPHINE, PREGABALIN, SUMATRIPTAN, TRAMADOL. REVIEW OF SYSTEMS CONSTITUTIONAL: The patient has some sweating. HEENT: Ears: No tinnitus or hearing problem. Nose: She has some nasal discharge. Throat: No sore throat or mouth ulcers. Eyes: No diplopia or visual changes. RESPIRATORY: She has cough with expectoration. CARDIOVASCULAR: No chest pain, orthopnea, or paroxysmal nocturnal dyspnea (PND) . No edema. No palpitations. GASTROINTESTINAL: She has diarrhea. GENITOURINARY: No hematuria or dysuria. MUSCULOSKELETAL: She has generalized musculoskeletal pain due to fibromyalgia. NEUROLOGICAL: She has headache. HEMATOLOGIC/LYMPHATIC: She is weak, tired and fatigued. SKIN: No skin rash or lumps. PSYCHIATRIC: She has insomnia. PHYSICAL EXAMINATION GENERAL: Looks stable. Well-developed, well-nourished, and in no acute distress. VITAL SIGNS: Blood pressure 136/75, pulse 68 per minute, respirations 16 per minute, temperature 98, pulse oximetry 91% on room air. HEENT: Head: Atraumatic. No sinus tenderness to palpation. Eyes: No icterus or conjunctivitis. Mouth and throat: No oral thrush or mucositis. NECK: Supple. No cervical or supraclavicular lymphadenopathy. LUNGS: There is some wheezing during her chest exam. There are no rales. HEART: Regular rate and rhythm. No gallops, murmurs, clicks or rubs. ABDOMEN: Soft and lax. No tenderness. No hepatosplenomegaly. No masses. EXTREMITIES: No cyanosis, clubbing or edema. LYMPHATICS: No peripheral lymphadenopathy. NEUROLOGICAL: Conscious, alert and oriented times three. No focal motor or sensory deficits. PSYCHIATRIC: Mood and affect appear normal. SKIN: No skin rash, bruise or purpuric eruption. DIAGNOSTIC DATA CBC showed a white count of 8.2, hemoglobin 15.2, hematocrit 45.4, platelets 284 ,000. Chemistry panel was totally normal. ASSESSMENT 1. 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 The tumor was human papilloma virus positive and p16 was positive. CT scan done on January 22, 2015 was positive for anal carcinoma with SUV of 4 with no local or systemic metastasis. The patient received chemoradiation with two cycles of mitomycin and 5 FU received between February 15, 2015 through March 17, 2015. Repeat PET/CT scan on October 30, 2015 did not show any local or systemic metastasis. The area of the anal canal had an SUV of 4, which came back with SUV of 2, within the normal range. The patient is currently in complete remission. I am planning to continue surveillance. I will see her again in thee months with CBC and chem panel. 2. Fibromyalgia. 3. Depression and anxiety, on treatment. 4. Osteoarthritis of the left hip. 5. Type 2 diabetes. 6. Chronic obstructive pulmonary disease PLAN 1. Continue followup. 2. The patient is to return in three months with CBC and chem panel. 3. The patient is to contact us for any new concern or complaints. MTDD
[2018-01-08 16:28] LABS: PLATELET COUNT, AUTOMATED 281 K/uL (150-450)
[~2018-01-09 16:06] MED LIST changes: -RANI-324 PO; +RANI-366 PO
[2018-01-09 16:28] VITALS: BP 135/77
[2018-01-09] MEDS ORDERED: LAMO25TA64 PO (16:35)
[2018-01-09] MEDS ORDERED: LORA5TAB16 PO (16:35)
--- NOTE | 2018-01-09 18:06 | ONCOLOGY FOLLOW UP NOTE ---
EVENT DATE: January 09, 2018 DIAGNOSES 1. 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 2. Fibromyalgia. 3. Depression. 4. Anxiety. 5. Osteoarthritis. 6. Type 2 diabetes. 7. Chronic obstructive pulmonary disease/asthma. CHIEF COMPLAINT The patient is here today for followup of her anal carcinoma. ONCOLOGY HISTORY Sugar Charles is a 51-year-old female. PRESENTATION Lower pelvic pressure and a decrease in caliber of stools with a small amount of blood with bowel movements. DIAGNOSTIC EVALUATION Endoscopic evaluation by Dr. Wilkes done January 12, 2015, upper endoscopy was also done. By endoscopy, there was no discrete mass but an area of firmness in the anal canal. Biopsy was done. This area measured about 0.5 cm. 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 Tumor is human papillomavirus positive, p16. STAGING WORKUP PET/CT scan done on January 25, 2015, revealed focal uptake in the anal canal with SUV of 4 but no local or systemic metastasis. STAGE T1/T2 N0 M0. TREATMENT The patient received chemoradiation. She received two cycles of mitomycin, 5-FU , leucovorin between February 15, 2015 through March 17, 2015. HISTORY OF PRESENT ILLNESS The patient is here today for followup of her anal carcinoma. She is complaining of sore throat for over a month, with nasal discharge, cough and expectoration and shortness of breath. She has also diarrhea since her diagnosis of anal carcinoma and treatment. She has generalized joint pains due to her fibromyalgia. She has occasional headache. She is weak, tired and fatigued, extremely from her fibromyalgia too. PAST MEDICAL HISTORY 1. Fibromyalgia diagnosed 2003. 2. Osteoarthritis. 3. Type 2 diabetes. 4. COPD. 5. Asthma. 6. Chronic anxiety. 7. Hypercholesterolemia. 8. Osteoporosis. 9. History of depression. PAST SURGICAL HISTORY 1. Hemorrhoidectomy. 2. Multiple laparoscopic surgeries. 3. Cholecystectomy. 4. Two partial hysterectomies. 5. Appendectomy. 6. Resection of cyst removal from a finger. FAMILY HISTORY Mother had breast cancer, and a maternal grandfather with some sort of cancer. SOCIAL HISTORY The patient is a with one daughter and one step-son. She is unemployed. She is a smoker who is up to half-pack a day for 30 years. Denies any abuse of alcohol or illicit drugs. CURRENT MEDICATIONS 1. Robaxin 500 mg twice daily. 2. Albuterol 6.7 gm inhaler, one to two puffs as needed. 3. Zyrtec 10 mg daily. 4. Cymbalta 60 mg daily. 5. Trazodone 150 mg at bedtime. 6. Calcium/vitamin D 600 mg one tablet daily. 7. Protonix 20 mg daily. 8. Levothyroxine 25 mcg daily. ALLERGIES 1. CODEINE. 2. ERYTHROMYCIN BASE. 3. HYDROMORPHONE. 4. KETOROLAC. 5. MORPHINE. 6. NALBUPHINE. 7. PREGABALIN. 8. SUMATRIPTAN. 9. TRAMADOL. REVIEW OF SYSTEMS CONSTITUTIONAL: The patient has some sweating. HEENT: Ears: No tinnitus or hearing problem. Nose: She has some nasal discharge. Throat: She has had sore throat for over a month. No mouth ulcers. Eyes: No diplopia or visual changes. RESPIRATORY: She has cough with expectoration and shortness of breath. CARDIOVASCULAR: No chest pain, orthopnea, or paroxysmal nocturnal dyspnea (PND) . No edema. No palpitations. GASTROINTESTINAL: She has diarrhea which is chronic since her diagnosis of anal carcinoma. GENITOURINARY: No hematuria or dysuria. MUSCULOSKELETAL: She has generalized joint pains from fibromyalgia. NEUROLOGICAL: She has occasional headache. HEMATOLOGIC/LYMPHATIC: She is weak, tired and fatigued from fibromyalgia. SKIN: No skin rash or lumps. PSYCHIATRIC: She has insomnia. PHYSICAL EXAMINATION GENERAL: Looks stable. Well-developed, well-nourished, and in no acute distress. VITAL SIGNS: Blood pressure 135/77, pulse 98 per minute, respirations 16 per minute, temperature 99.1, pulse oximetry 90% on room air. HEENT: Head: Atraumatic. No sinus tenderness to palpation. Eyes: No icterus or conjunctivitis. Mouth and throat: No oral thrush or mucositis. NECK: Supple. No cervical or supraclavicular lymphadenopathy. LUNGS: There is some wheezing during her chest exam. There are no rales. HEART: Regular rate and rhythm. No gallops, murmurs, clicks or rubs. ABDOMEN: Soft and lax. No tenderness. No hepatosplenomegaly. No masses. EXTREMITIES: No cyanosis, clubbing or edema. LYMPHATICS: No peripheral lymphadenopathy. NEUROLOGICAL: Conscious, alert and oriented times three. No focal motor or sensory deficits. PSYCHIATRIC: Mood and affect appear normal. SKIN: No skin rash, bruise or purpuric eruption. DIAGNOSTIC DATA CBC showed a white count of 9.2, hemoglobin 15, hematocrit 43.1, platelets 281, 000. Chemistry panel i totally normal. ASSESSMENT 1. 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 The tumor was human papilloma virus positive and p16 was positive. CT scan done on January 22, 2015 was positive for anal carcinoma with SUV of 4 with no local or systemic metastasis. The patient received chemoradiation with two cycles of mitomycin and 5 FU, received between February 15, 2015 through March 17, 2015. Repeat PET/CT scan on October 30, 2015 did not show any local or systemic metastasis. The area of the anal canal which had an SUV of 4, the SUV after treatment was only 2, within the normal range. The patient is currently in complete remission. As she is about three years since her diagnosis, I am planning to start to see her every four months with CBC and chem panel. 2. Fibromyalgia. 3. Depression and anxiety, on treatment. 4. Osteoarthritis of the left hip. 5. Type 2 diabetes. 6. Chronic obstructive pulmonary disease PLAN 1. Continue followup. 2. The patient is to return in four months with CBC and chem panel. 3. The patient is to contact us for any new concerns or complaints. ALDO
== END 2018-01-13 10:18 | disposition home or self-care (01) ==
LOC: ONC 16:06
PROVIDERS: ATTEND Internal Medicine Hematology
DX: Z85.048 Personal history of other malignant neoplasm of rectum, rectosigmoid junction, and anus (principal); Z92.21 Personal history of antineoplastic chemotherapy; Z92.3 Personal history of irradiation; M79.7 Fibromyalgia; F32.9 Major depressive disorder, single episode, unspecified; M16.12 Unilateral primary osteoarthritis, left hip; E11.9 Type 2 diabetes mellitus without complications; J44.9 Chronic obstructive pulmonary disease, unspecified; R19.7 Diarrhea, unspecified
CPT/HCPCS: 36415; 82040; 82247; 82310; 82374; 82435; 82565; 82947; 84075; 84132; 84155; 84295; 84450; 84460; 84520; 85025

== ENCOUNTER 2018-03-21 13:51 | Emergency (ER) | payer SELFPAY ==
[2015-02-25 13:42] VITALS: Wt 65.8 kg
[~2018-03-21 13:51] MED LIST changes: -INDO-1 PO; +INDO-21 PO; +LAMO25TA64 PO; +LORA5TAB16 PO; -TRAZ-163 PO; +TRAZ100T31 PO
--- NOTE | 2018-03-21 14:31 | ER Report ---
History and Physical Time Seen By MD: 14:31 HPI/ROS CHIEF COMPLAINT: Back pain HISTORY OF PRESENT ILLNESS: 52-year-old female patient presents to emergency room with complaint of back pain. Patient states she was walking downstairs approximately fpc up when she slipped and fell all the way down the stairs. Patient states she has significant amounts of low back pain. She states the pain is also in the right hip. She states she's not had any loss of bowel or bladder control, she denies having any saddle paresthesia. She states she did take some ibuprofen for this with no improvement. She denies any head or neck pain. She states that she does not hurt anywhere else except for her back. Patient states the pain is worse with ambulation. She states is worse when she stands up. REVIEW OF SYSTEMS: Respiratory: No cough, no dyspnea. Cardiovascular: No chest pain, no palpitations. Gastrointestinal: No vomiting, no abdominal pain. Musculoskeletal: As noted above Allergies: Coded Allergies: BEE STINGS (Verified Allergy, Severe, AIRWAY OBSTRUCTION, 08/04/17) erythromycin base (Verified Allergy, Severe, SEIZURES AND VOMITING, 08/04/17 ) hydromorphone (Verified Allergy, Severe, SWELLS UP LIKE A BALOON AND ITCHES REAL BAD, 08/04/17) ketorolac (Verified Allergy, Severe, VOMITING SWELLING UP EYES, 08/04/17) morphine (Verified Allergy, Severe, HEADACHES AND ITCHINESS AND SWELLING, 08/04/17) pregabalin (Verified Allergy, Severe, MIGRAINES, 08/04/17) sumatriptan (Verified Allergy, Severe, THROAT SWELLS SHUT AND SHE STOPS BREATHING, 08/04/17) codeine (Verified Allergy, Intermediate, HIVES AND ITCHINESS, 08/04/17) promethazine (Verified Allergy, Intermediate, 08/04/17) tramadol (Verified Allergy, Mild, NAUSEA, 08/04/17) nalbuphine (Verified Adverse Reaction, Mild, WIRED HER, 08/04/17) Home Meds Active Scripts Orphenadrine Citrate (ORPHENADRINE CITRATE) 100 Mg Tabsr, 100 MG PO BID Y for MUSCLE SPASMS, #15 TAB.SA Prov:KP MANN FARE COLLECTOR 03/21/18 Hydrocodone Bit/Acetaminophen (HYDROCODON-ACETAMINOPHEN 5-325) 1 Each Tablet, 1 EACH PO Q4-6H Y for PAIN, #12 TAB Prov:KP MANN FARE COLLECTOR 03/21/18 Discontinued Reported Medications Lamotrigine (LAMICTAL) 25 Mg Tablet, 25 MG PO 01/09/18 Loratadine (CLARITIN) 5 Mg Tab.rapdis, 5 MG PO QDAY 01/09/18 Propranolol Hcl (PROPRANOLOL HCL) 40 Mg Tablet, 40 MG PO BID 05/14/17 Trazodone Hcl (TRAZODONE HCL) 100 Mg Tablet, 100 MG PO QHS, TAB 03/20/17 Duloxetine Hcl (CYMBALTA) 60 Mg Capsule.dr, 60 MG PO QDAY, #5 CAP 03/20/17 Atorvastatin Calcium (LIPITOR) 10 Mg Tablet, 1 TAB PO QDAY, TAB 03/20/17 Calcium Carbonate/Vitamin D3 (CALTRATE 600 + D TABLET) 1 Each Tablet, 1 EACH PO HS 08/08/16 Past Medical/Surgical History Patient has a past medical history of CVA, seizures, migraines, angina, hyperlipidemia, oxygen at night, asthma, pneumonia, COPD, rectal cancer, reflux , cholecystitis, urinary incontinence, osteoarthritis and right hip, fibromyalgia, osteoporosis, wrist fractures, back pain, type 2 diabetes, hypothyroidism, fibromyalgia, alcohol use, anxiety, depression, suicidal ideation. Patient has a past surgical history of cholecystectomy, laparoscopy, appendectomy, hemorrhoid surgery, hysterectomy carpal tunnel release, rib Patient has a family medical history of cancer, diabetes. Reviewed Nurses Notes: Yes Hx Smoking: Yes (3-4 daily) Smoking Status: Current: Every Day Smoker Exposure to Second Hand Smoke?: Yes Hx Substance Use Disorder: No Hx Alcohol Use: Yes (rare) Constitutional Vital Sign - Last 24 Hours 03/21/18 03/21/18 03/21/18 03/21/18 14:33 14:34 14:56 15:00 Temp 98.1 Pulse 64 62 Resp 20 B/P (MAP) 93/57 93/57 (69) 99/56 (70) Pulse Ox 89 03/21/18 03/21/18 03/21/18 03/21/18 15:47 15:52 15:57 16:05 Pulse 54 57 B/P (MAP) 98/50 (66) 116/66 (83) Pulse Ox 90 88 Physical Exam General Appearance: The patient is alert, has no immediate need for airway protection and no current signs of toxicity. Respiratory: Chest is non tender, lungs are clear to auscultation. Cardiac: regular rate and rhythm Gastrointestinal: Abdomen is soft and non tender, no masses, bowel sounds normal. Musculoskeletal: Neck: Neck is supple and non tender. Extremities have full range of motion and are non tender. Back: Patient has tenderness to the low back, the right SI joint. There is no bruising, there is no abrasions. Skin: No rashes or lesions. DIFFERENTIAL DIAGNOSIS: After history and physical exam differential diagnosis was considered for back pain including but not limited to muscular pain, herniated disc, spine fracture, intra-abdominal causes and urinary tract infection. Medical Decision Making EKG/Imaging Imaging 4 view lumbar spine COMPARISONS: None. ADDITIONAL PERTINENT HISTORY: Fall with back pain FINDINGS: Vertebral body heights and alignments: Negative. Vertebral bodies: Extensive facet hypertrophic changes on the right at L4-L5 and L5-S1. Mild essentially directed osteophytes at multiple levels. No bony fractures. Disc spaces: Negative. Visualized bony pelvis: Negative. Surrounding soft tissues: Patient status post cholecystectomy. IMPRESSION: 1. Spondylitic change as discussed above. 2. No acute appearing bony abnormality. Report Dictated By: Erwin Kang MD at 03/21/2018 3:37 PM Report E-Signed By: Erwin Kang MD at 03/21/2018 3:40 PM SACROILIAC JOINTS 3 OR > VIEWS COMPARISONS: None. ADDITIONAL PERTINENT HISTORY: Back pain after fall FINDINGS: Osseous structures: Mild subchondral sclerosis and osteophyte formation involving the superior lateral aspects of both hip joints. Spondylitic change involving the lower lumbar spine. Joint spaces: Mild joint space narrowing involving the superior lateral aspects of both hip joints. Surrounding soft tissues: Negative. IMPRESSION: 1. Spondylitic change involving the lower lumbar spine and mild osteoarthritic changes involving both hips. 2. No acute appearing bony abnormalities. Report Dictated By: Erwin Kang MD at 03/21/2018 3:40 PM Report E-Signed By: Erwin Kang MD at 03/21/2018 3:41 PM ED Course/Re-evaluation ED Course Patient was admitted to examine, history and physical were obtained. Differential diagnoses were considered. On examination patient did have tenderness to the low back as well as the right SI joint. No bruises or abrasions were noted. X-rays done of the lumbar spine as well as the SI joints. Results were negative. I discussed findings with the patient. We'll go ahead and discharge her home. We'll give her a muscle relaxer, which seem to help in the emergency room as well as a limited supply of pain medication. She is to follow-up with her primary care provider in the next week. She is return to emergency room if condition worsens. Discusses patient who verbalized understanding and agreement with plan. Decision to Disposition Date: Mar 21, 2018 Decision to Disposition Time: 15:57 Depart Departure Latest Vital Signs Vital Signs Date Time Temp Pulse Resp B/P (MAP) Pulse Ox O2 Delivery O2 Flow Rate FiO2 03/21/18 16:05 116/66 (83) 03/21/18 15:57 57 88 03/21/18 14:33 98.1 20 Impression: Primary Impression: Acute lumbar back pain Additional Impression: Contusion of back Condition: Improved Disposition: HOME OR SELF-CARE New Scripts Orphenadrine Citrate (ORPHENADRINE CITRATE) 100 Mg Tabsr 100 MG PO BID Y for MUSCLE SPASMS, #15 TAB.SA Prov: KP MANN 03/21/18 Hydrocodone Bit/Acetaminophen (HYDROCODON-ACETAMINOPHEN 5-325) 1 Each Tablet 1 EACH PO Q4-6H Y for PAIN, #12 TAB Prov: KP MANN 03/21/18 Patient Instructions: Acute Low Back Pain (ED) Additional Instructions: Limit activity by pain. Alternate ice and heat for the next 3-4 days. No heavy lifting. Return to the ER if condition worsens. Follow up with your primary care provider in the next week. You may take Ibuprofen as needed for pain in addition to the pain medication. Problem Qualifiers Primary Impression: Acute lumbar back pain Back pain laterality: right Sciatica presence: with sciatica Sciatica laterality: sciatica of right side Qualified Codes: M54.41 - Lumbago with sciatica, right side Additional Impression: Contusion of back Encounter type: initial encounter Laterality: right Qualified Codes: S20.221A - Contusion of right back wall of thorax, initial encounter KP MANN Mar 21, 2018 14:31
[2018-03-21] MEDS ORDERED: ORPHENADRINE 60MG/2ML INJ IM ONE (14:40)
[2018-03-21] MEDS ORDERED: fentaNYL CITR 100 MCG/2 ML AMP IM ONE (14:50)
--- NOTE | 2018-03-21 15:44 | RADIOLOGY IMAGING REPORT ---
FACILITY: [facility] PATIENT NAME: Sugar Charles : 1965 MR: [id number] V: [id number] EXAM DATE: ORDERING PHYSICIAN: KP MANN TECHNOLOGIST: [place] [facility] [place] : 1965 Visit/Account:[id number] Date of Sevice: 03/21/2018 4 view lumbar spine COMPARISONS: None. ADDITIONAL PERTINENT HISTORY: Fall with back pain FINDINGS: Vertebral body heights and alignments: Negative. Vertebral bodies: Extensive facet hypertrophic changes on the right at L4-L5 and L5-S1. Mild essentia lly directed osteophytes at multiple levels. No bony fractures. Disc spaces: Negative. Visualized bony pelvis: Negative. Surrounding soft tissues: Patient status post cholecystectomy. IMPRESSION: 1. Spondylitic change as discussed above. 2. No acute appearing bony abnormality. Report Dictated By: Erwin Kang MD at 03/21/2018 3:37 PM Report E-Signed By: Erwin Kang MD at 03/21/2018 3:40 PM WSN:[id number]
--- NOTE | 2018-03-21 15:46 | RADIOLOGY IMAGING REPORT ---
FACILITY: [facility] - [place], [place] PATIENT NAME: Sugar Charles : 1965 MR: [id number] V: [id number] EXAM DATE: ORDERING PHYSICIAN: KP MANN TECHNOLOGIST: Location: [facility] - [place] Patient: Sugar Charles : 1965 Visit/Account:[id number] Date of Sevice: 03/21/2018 SACROILIAC JOINTS 3 OR > VIEWS COMPARISONS: None. ADDITIONAL PERTINENT HISTORY: Back pain after fall FINDINGS: Osseous structures: Mild subchondral sclerosis and osteophyte formation involving the superior latera l aspects of both hip joints. Spondylitic change involving the lower lumbar spine. Joint spaces: Mild joint space narrowing involving the superior lateral aspects of both hip joints. Surrounding soft tissues: Negative. IMPRESSION: 1. Spondylitic change involving the lower lumbar spine and mild osteoarthritic changes involving both hips. 2. No acute appearing bony abnormalities. Report Dictated By: Erwin Kang MD at 03/21/2018 3:40 PM Report E-Signed By: Erwin Kang MD at 03/21/2018 3:41 PM WSN:[id number]
[2018-03-21] MEDS ORDERED: HYDR-385 PO (15:54)
[2018-03-21] MEDS ORDERED: ORP100 PO (15:54)
[2018-03-21 16:05] VITALS: BP 116/66
== END 2018-03-21 16:14 | disposition home or self-care (01) ==
LOC: ER 14:39
DX: S30.0XXA Contusion of lower back and pelvis, initial encounter (principal); W10.9XXA Fall (on) (from) unspecified stairs and steps, initial encounter; J44.9 Chronic obstructive pulmonary disease, unspecified; E78.5 Hyperlipidemia, unspecified; M79.7 Fibromyalgia; E11.9 Type 2 diabetes mellitus without complications; F17.210 Nicotine dependence, cigarettes, uncomplicated
CPT/HCPCS: 72120; 72202; 96372; 99284; J2360; J3010

== ENCOUNTER 2018-06-10 12:30 | Outpatient (RCR) | payer SELFPAY ==
[2015-02-25 13:42] VITALS: Wt 79.7 kg
[2018-06-04 16:57] LABS: PLATELET COUNT, AUTOMATED 267 K/uL (150-450)
[2018-06-05 15:04] VITALS: BP 163/81
--- NOTE | 2018-06-05 20:47 | ONCOLOGY FOLLOW UP NOTE ---
EVENT DATE: June 05, 2018 DIAGNOSES 1. 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 2. Fibromyalgia. 3. Depression. 4. Anxiety. 5. Osteoarthritis. 6. Type 2 diabetes. 7. Chronic obstructive pulmonary disease/asthma. CHIEF COMPLAINT The patient is here today for followup of her anal carcinoma. ONCOLOGY HISTORY Sugar Charles is a 52-year-old female. PRESENTATION Lower pelvic pressure and a decrease in caliber of stools with a small amount of blood with bowel movements. DIAGNOSTIC EVALUATION Endoscopic evaluation by Dr. Wilkes done January 12, 2015. Upper endoscopy was also done. By endoscopy, there was no discrete mass, but an area of firmness in the anal canal. Biopsy was done. This area measured about 0.5 cm. 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 Tumor is human papillomavirus positive, p16. STAGING WORKUP PET/CT scan done on January 25, 2015, revealed focal uptake in the anal canal with SUV of 4, but no local or systemic metastasis. STAGE T1/T2 N0 M0. TREATMENT The patient received chemoradiation. She received two cycles of mitomycin, 5- FU, leucovorin between February 15, 2015, through March 17, 2015. HISTORY OF PRESENT ILLNESS The patient is here today for followup of her anal carcinoma. She has a runny nose and diarrhea. She has generalized joint pains from her fibromyalgia and weakness and tiredness also because of the same. She has neuropathy in her hands and feet. PAST MEDICAL HISTORY 1. Fibromyalgia diagnosed 2003. 2. Osteoarthritis. 3. Type 2 diabetes. 4. COPD. 5. Asthma. 6. Chronic anxiety. 7. Hypercholesterolemia. 8. Osteoporosis. 9. History of depression. PAST SURGICAL HISTORY 1. Hemorrhoidectomy. 2. Multiple laparoscopic surgeries. 3. Cholecystectomy. 4. Two partial hysterectomies. 5. Appendectomy. 6. Resection of cyst removal from a finger. FAMILY HISTORY Mother had breast cancer, and a maternal grandfather with some sort of cancer. SOCIAL HISTORY The patient is a with one daughter and one stepson. She is unemployed. She is a smoker who is up to half-pack a day for 30 years. Denies any abuse of alcohol or illicit drugs. CURRENT MEDICATIONS 1. Robaxin 500 mg twice daily. 2. Albuterol 6.7 gm inhaler, one to two puffs as needed. 3. Zyrtec 10 mg daily. 4. Cymbalta 60 mg daily. 5. Trazodone 150 mg at bedtime. 6. Calcium/vitamin D 600 mg one tablet daily. 7. Protonix 20 mg daily. 8. Levothyroxine 25 mcg daily. ALLERGIES 1. CODEINE. 2. ERYTHROMYCIN BASE. 3. HYDROMORPHONE. 4. KETOROLAC. 5. MORPHINE. 6. NALBUPHINE. 7. PREGABALIN. 8. SUMATRIPTAN. 9. TRAMADOL. REVIEW OF SYSTEMS CONSTITUTIONAL: No appetite or weight change. No fever, chills, or sweating. No recent infection. HEENT: Ears: No tinnitus or hearing problem. Nose: She has nasal discharge. No epistaxis. Throat: No sore throat or mouth ulcers. Eyes: No diplopia or visual changes. RESPIRATORY: No shortness of breath. No cough, expectoration, or hemoptysis. CARDIOVASCULAR: No chest pain, orthopnea, or paroxysmal nocturnal dyspnea (PND). No edema. No palpitations. GASTROINTESTINAL: No nausea or vomiting. She has diarrhea. No constipation. No change in bowel movements. No heartburn or swallowing difficulties. No abdominal pain. No jaundice. No hematemesis, melena, or rectal bleeding. GENITOURINARY: No hematuria or dysuria. MUSCULOSKELETAL: She has generalized joint pain from fibromyalgia. NEUROLOGICAL: She has neuropathy in her hands and feet. No headaches or convulsions. HEMATOLOGIC/LYMPHATIC: No bleeding or easy bruising. She is weak, tired, and fatigued. No enlarged lymph nodes. SKIN: No skin rash or lumps. PSYCHIATRIC: Depression and anxiety. PHYSICAL EXAMINATION GENERAL: Looks stable. Well developed, well nourished, and in no acute distress. VITAL SIGNS: Blood pressure 163/81, pulse 61 per minute, respirations 16 per minute, temperature 97.7, pulse ox 91% on room air. HEENT: Head: Atraumatic. No sinus tenderness to palpation. Eyes: No icterus or conjunctivitis. Mouth and Throat: No oral thrush or mucositis. NECK: Supple. No cervical or supraclavicular lymphadenopathy. LUNGS: There is some wheezing during her chest exam. There are no rales. HEART: Regular rate and rhythm. No gallops, murmurs, clicks, or rubs. ABDOMEN: Soft and lax. No tenderness. No hepatosplenomegaly. No masses. EXTREMITIES: No cyanosis, clubbing, or edema. LYMPHATICS: No peripheral lymphadenopathy. NEUROLOGICAL: Conscious, alert, and oriented times three. No focal motor or sensory deficits. PSYCHIATRIC: Mood and affect appear normal. SKIN: No skin rash, bruise, or purpuric eruption. DIAGNOSTIC DATA CBC showed white count 7.6, hemoglobin 15.2, hematocrit 43.2, platelets 267,000. Chemistry panel is totally normal. ASSESSMENT 1. 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 The tumor was human papilloma virus positive, and p16 was positive. CT scan done January 22, 2015, was positive for anal carcinoma with SUV of 4 with no local or systemic metastasis. The patient received chemoradiation with two cycles of mitomycin and 5-FU, received between February 15, 2015, through March 17, 2015. Repeat PET/CT scan October 30, 2015, did not show any local or systemic metastasis. The area of the anal canal which had an SUV of 4 became 2 after her treatment, within the normal range. The patient currently in complete remission. I am planning to see her again in four months with CBC and chemistry panel. 2. Fibromyalgia. 3. Depression and anxiety. 4. Osteoarthritis of the left hip. 5. Type 2 diabetes. 6. Chronic obstructive pulmonary disease. PLAN 1. Continue followup. 2. The patient to return in four months with CBC and chem panel. 3. Bilateral screening mammogram. 4. The patient to contact us for any new concerns or complaints. ALDO
[~2018-06-10 12:30] MED LIST changes: +CALC-597 PO; +HYDR-385 PO; -HYDR-4309 PO; +HYDR-653 PO; +INFLUENZA VIRUS VAC 0.5ML SYR IM ONLY ONE; +LAMO25TA60 PO; +ORP100 PO; -RANI75TA5 PO; +RANI75TA51 PO
== END 2018-07-01 11:05 | disposition home or self-care (01) ==
LOC: SPU 12:30
PROVIDERS: ATTEND Internal Medicine Hematology
DX: Z85.048 Personal history of other malignant neoplasm of rectum, rectosigmoid junction, and anus (principal); Z92.21 Personal history of antineoplastic chemotherapy; Z92.3 Personal history of irradiation; M79.7 Fibromyalgia; F32.9 Major depressive disorder, single episode, unspecified; M16.12 Unilateral primary osteoarthritis, left hip; E11.9 Type 2 diabetes mellitus without complications; J44.9 Chronic obstructive pulmonary disease, unspecified; R19.7 Diarrhea, unspecified; Z23 Encounter for immunization
CPT/HCPCS: 36415; 82040; 82247; 82310; 82374; 82435; 82565; 82947; 84075; 84132; 84155; 84295; 84450; 84460; 84520; 85025; 90471; 90674; 99212

== ENCOUNTER 2018-10-08 15:29 | Outpatient (RCR) | payer BC ==
[2015-02-25 13:42] VITALS: Wt 79.7 kg
[2018-10-07 08:07] LABS: PLATELET COUNT, AUTOMATED 326 K/uL (150-450)
[~2018-10-08 15:29] MED LIST changes: -INFLUENZA VIRUS VAC 0.5ML SYR IM ONLY ONE; -LAMO25TA60 PO; +LAMO25TA68 PO; -ROS10 PO; +ROSU10TA PO
[2018-10-08 15:33] VITALS: BP 143/78
[2018-10-08] MEDS ORDERED: BUSP10TA95 PO (15:39)
[2018-10-08] MEDS ORDERED: TRAZ150T8 PO (15:46)
--- NOTE | 2018-10-09 03:48 | [facility] ONCOLOGY NOTE ---
EVENT DATE: October 08, 2018 DIAGNOSES 1. 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 2. Fibromyalgia. 3. Depression. 4. Anxiety. 5. Osteoarthritis. 6. Type 2 diabetes. 7. Chronic obstructive pulmonary disease/asthma. CHIEF COMPLAINT The patient is here today for followup of her anal carcinoma. ONCOLOGY HISTORY Sugar Charles is a 52-year-old female. PRESENTATION Lower pelvic pressure and a decrease in caliber of stools with a small amount of blood with bowel movements. DIAGNOSTIC EVALUATION Endoscopic evaluation by Dr. Wilkes done January 12, 2015. Upper endoscopy was also done. By endoscopy, there was no discrete mass, but an area of firmness in the anal canal. Biopsy was done. This area measured about 0.5 cm. 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 Tumor is human papillomavirus positive, p16. STAGING WORKUP PET/CT scan done on January 25, 2015, revealed focal uptake in the anal canal with SUV of 4, but no local or systemic metastasis. STAGE T1/T2 N0 M0. TREATMENT The patient received chemoradiation. She received two cycles of mitomycin, 5- FU, leucovorin between February 15, 2015, through March 17, 2015. HISTORY OF PRESENT ILLNESS The patient is here today for followup of her anal carcinoma. She is complaining of occasional nausea. She has also increased frequency of urine. She has generalized pain, musculoskeletal in origin, due to her fibromyalgia. She has also tingling and numbness in the hands and feet and a headache. She is weak, tired, and fatigued. PAST MEDICAL HISTORY 1. Fibromyalgia diagnosed 2003. 2. Osteoarthritis. 3. Type 2 diabetes. 4. COPD. 5. Asthma. 6. Chronic anxiety. 7. Hypercholesterolemia. 8. Osteoporosis. 9. History of depression. PAST SURGICAL HISTORY 1. Hemorrhoidectomy. 2. Multiple laparoscopic surgeries. 3. Cholecystectomy. 4. Two partial hysterectomies. 5. Appendectomy. 6. Resection of cyst removal from a finger. FAMILY HISTORY Mother had breast cancer, and a maternal grandfather with some sort of cancer. SOCIAL HISTORY The patient is a with one daughter and one stepson. She is unemployed. She is a smoker who is up to half-pack a day for 30 years. Denies any abuse of alcohol or illicit drugs. CURRENT MEDICATIONS 1. Robaxin 500 mg twice daily. 2. Albuterol 6.7 gm inhaler, one to two puffs as needed. 3. Zyrtec 10 mg daily. 4. Cymbalta 60 mg daily. 5. Trazodone 150 mg at bedtime. 6. Calcium/vitamin D 600 mg one tablet daily. 7. Protonix 20 mg daily. 8. Levothyroxine 25 mcg daily. ALLERGIES 1. CODEINE. 2. ERYTHROMYCIN BASE. 3. HYDROMORPHONE. 4. KETOROLAC. 5. MORPHINE. 6. NALBUPHINE. 7. PREGABALIN. 8. SUMATRIPTAN. 9. TRAMADOL. REVIEW OF SYSTEMS CONSTITUTIONAL: No appetite or weight change. No fever, chills or sweating. No recent infection. HEENT: Ears: No tinnitus or hearing problem. Nose: No nasal discharge or epistaxis. Throat: No sore throat or mouth ulcers. Eyes: No diplopia or visual changes. RESPIRATORY: No shortness of breath. No cough, expectoration or hemoptysis. CARDIOVASCULAR: No chest pain, orthopnea, or paroxysmal nocturnal dyspnea (PND). No edema. No palpitations. GASTROINTESTINAL: Patient has nausea. GENITOURINARY: She has increased frequency of urine. MUSCULOSKELETAL: She has pain generalized all over the musculoskeletal system due to her fibromyalgia. NEUROLOGICAL: She has tingling and numbness in the hands and feet and occasional headache. HEMATOLOGIC/LYMPHATIC: She is extremely weak, tired, and fatigued. SKIN: No skin rash or lumps. PSYCHIATRIC: No anxiety or depression. PHYSICAL EXAMINATION GENERAL: Looks stable. Well-developed, well-nourished, and in no acute distress. VITAL SIGNS: Blood pressure 143/78, pulse 75 per minute, respirations 16 per minute, temperature 98.7, pulse oximetry 97% on room air. HEENT: Head: Atraumatic. No sinus tenderness to palpation. Eyes: No icterus or conjunctivitis. Mouth and throat: No oral thrush or mucositis. NECK: Supple. No cervical or supraclavicular lymphadenopathy. LUNGS: Clear to auscultation and percussion bilaterally. HEART: Regular rate and rhythm. No gallops, murmurs, clicks or rubs. ABDOMEN: Soft and lax. No tenderness. No hepatosplenomegaly. No masses. EXTREMITIES: No cyanosis, clubbing or edema. LYMPHATICS: No peripheral lymphadenopathy. NEUROLOGICAL: Conscious, alert and oriented times three. No focal motor or sensory deficits. PSYCHIATRIC: Mood and affect appear normal. SKIN: No skin rash, bruise or purpuric eruption. DIAGNOSTIC DATA CBC showed white count 5.6, hemoglobin 15.4, hematocrit 45.2, platelets 326,000. Chem panel is totally normal. ASSESSMENT 1. 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 The tumor was human papilloma virus positive, and p16 was positive. CT scan done on January 22, 2015, was positive for anal carcinoma with SUV of 4 with no local or systemic metastasis. The patient received chemoradiation with two cycles of mitomycin and 5-FU, received between February 15, 2015, through March 17, 2015. Repeat PET/CT scan October 30, 2015, did not show any local or systemic metastasis. The area of the anal canal which had an SUV of 4 became 2 after her treatment, within the normal range. The patient currently is in complete remission. I am planning to see her again in six months with CBC and chemistry panel at that time. 2. Fibromyalgia. 3. Depression and anxiety. 4. Osteoarthritis of the left hip. 5. Type 2 diabetes. 6. Chronic obstructive pulmonary disease. PLAN 1. Continue followup. 2. The patient to return in six months with CBC and chem panel. 3. The patient to contact us for any new concerns or complaints. DALED
--- NOTE | 2018-10-09 13:42 | NUR ---
GRISELDA left a message for the patient after learning that the patient was looking for some help on her medication co-pays. GRISELDA called the number on file but had to leave a message.
== END 2018-11-25 09:26 | disposition home or self-care (01) ==
LOC: ONC 15:29
PROVIDERS: ATTEND Internal Medicine Hematology
DX: C21.0 Malignant neoplasm of anus, unspecified (principal); M25.552 Pain in left hip
CPT/HCPCS: 36415; 82040; 82247; 82310; 82374; 82435; 82565; 82947; 84075; 84132; 84155; 84295; 84450; 84460; 84520; 85025; 99212

== ENCOUNTER 2018-10-21 18:47 | Emergency (ER) | payer BC ==
[2015-02-25 13:42] VITALS: Wt 79.5 kg
[~2018-10-21 18:47] MED LIST changes: +BUSP10TA95 PO; +TRAZ150T8 PO
[2018-10-21 18:53] VITALS: BP 159/74
[2018-10-21] MEDS ORDERED: IBUPROFEN 600 MG TAB PO ONE (19:20)
--- NOTE | 2018-10-21 19:29 | ER Report ---
History and Physical Time Seen By MD: 19:00 Hx. of Stated Complaint: MISSED TWO STEPS. LANDED ON BOTH KNEES AT THE BOTTOM. BOTH KNEES KNURT, RT ANKLE, HANDS ARE BRUISED BUT DON'T HURT HPI/ROS CHIEF COMPLAINT: Knee pain HISTORY OF PRESENT ILLNESS: 52-year-old female presents after walking down her friend's steps and missed in the last 2 steps, landing directly on her bilateral knees on the concrete ground. She states that she suffered abrasions to the knees, right ankle, and wrists, however she is only concerned about the pain to her left knee. The other symptoms are minor, pain in the left knee is 8 out of 10, is throughout the inferior knee, and constant. Patient has not tried any treatment prior to arrival. Patient was able to get up and ambulate at the scene but is concerned about the ongoing pain. Patient also notes that she has had pain in that left knee for the last 2 days consistent with prior symptoms of what she states is her rheumatoid arthritis. She has not noted significant swelling. She did not strike her head, lose consciousness, have nausea, vomiting REVIEW OF SYSTEMS: Respiratory: No cough, no dyspnea. Cardiovascular: No chest pain, no palpitations. Gastrointestinal: No vomiting, no abdominal pain. Musculoskeletal: No back pain. Remainder of the 14 system rev: Yes Allergies: Coded Allergies: BEE STINGS (Verified Allergy, Severe, AIRWAY OBSTRUCTION, 10/21/18) erythromycin base (Verified Allergy, Severe, SEIZURES AND VOMITING, 10/21/18) hydromorphone (Verified Allergy, Severe, SWELLS UP LIKE A BALOON AND ITCHES REAL BAD, 10/21/18) ketorolac (Verified Allergy, Severe, VOMITING SWELLING UP EYES, 10/21/18) morphine (Verified Allergy, Severe, HEADACHES AND ITCHINESS AND SWELLING, 10/21/18) pregabalin (Verified Allergy, Severe, MIGRAINES, 10/21/18) sumatriptan (Verified Allergy, Severe, THROAT SWELLS SHUT AND SHE STOPS BREATHING, 10/21/18) codeine (Verified Allergy, Intermediate, HIVES AND ITCHINESS, 10/21/18) promethazine (Verified Allergy, Intermediate, 10/21/18) tramadol (Verified Allergy, Mild, NAUSEA, 10/21/18) nalbuphine (Verified Adverse Reaction, Mild, WIRED HER, 10/21/18) Home Meds Reported Medications Trazodone Hcl (TRAZODONE HCL) 150 Mg Tablet, 150 MG PO QHS 10/08/18 Buspirone Hcl (BUSPIRONE HCL) 10 Mg Tablet, 10 MG PO BID, #20 TAB 10/08/18 Discontinued Reported Medications Lamotrigine (LAMOTRIGINE) 25 Mg Tablet, 25 MG PO DAILY 06/05/18 Reviewed Nurses Notes: Yes Hx Smoking: Yes (3-4 daily) Smoking Status: Current: Every Day Smoker Exposure to Second Hand Smoke?: Yes Hx Substance Use Disorder: No Hx Alcohol Use: Yes (rare) Constitutional Vital Sign - Last 24 Hours 10/21/18 18:53 Temp 98.2 Pulse 63 Resp 14 B/P (MAP) 159/74 Pulse Ox 94 O2 Delivery Room Air Physical Exam General Appearance: The patient is alert, has no immediate need for airway protection and no current signs of toxicity. Eyes: Pupils equal and round no injection. Musculoskeletal: Extremities have full range of motion; patient has tender as to palpation throughout the left knee, especially just distal to patella, however 5 out of 5 muscle strength in knee flexion and extension, patellar tendon is intact without palpable defect, no tenderness to patella, negative anterior drawer negative posterior drawer negative Alexandria's, negative Radha's testing. Skin: Patient has small abrasions on bilateral knees over inferior patella, r ight ankle, bilateral palms, without laceration or foreign body. [ ] DIFFERENTIAL DIAGNOSIS: After history and physical exam differential diagnosis was considered for fracture, ligament rupture, patella tendon/quadriceps tendon rupture, or other complciation of fall. Medical Decision Making ED Course/Re-evaluation ED Course 52 female presents after fall primarily onto left knee, has ambulated but at scene and in the emergency department. She has no significant ligament or tendon this reduction, her x-ray is negative for acute fracture. Recommend rest, ice, elevation, compression, and strict return precautions. Decision to Disposition Date: Oct 21, 2018 Decision to Disposition Time: 19:45 Depart Departure Latest Vital Signs Vital Signs Date Time Temp Pulse Resp B/P (MAP) Pulse Ox O2 Delivery O2 Flow Rate FiO2 10/21/18 18:53 98.2 63 14 159/74 94 Room Air Impression: Primary Impression: Knee sprain Condition: Improved Disposition: HOME OR SELF-CARE Patient Instructions: Knee Sprain (ED) Additional Instructions: As we discussed, I recommend Francisco wrap or a neoprene brace to help support your k nee. Please keep elevated over the level of your heart when lying down. You may use ibuprofen 600 mg every 8 hours, ice 20 minutes at a time. While I do not detect a tear of your tendon, the tendon that supports your patella may be strained and weakened so please be careful with ambulation and ascending or descending stairs. Please return for any concerns. Problem Qualifiers Primary Impression: Knee sprain Encounter type: initial encounter Involved ligament of knee: unspecified ligament Laterality: left Qualified Codes: S83.92XA - Sprain of unspecified site of left knee, initial encounter BAMBI KAN MD Oct 21, 2018 19:29
[2018-10-21] MEDS ORDERED: DIPHTH/TETANUS/ACEL. PERTUSSIS IM ONLY ONE (19:30)
--- NOTE | 2018-10-21 19:40 | RADIOLOGY IMAGING REPORT ---
FACILITY: [facility] - [place] PATIENT NAME: Suagr Charles : 1965 MR: [id number] V: [id number] EXAM DATE: ORDERING PHYSICIAN: BAMBI KAN TECHNOLOGIST: Location: [facility] Patient: Sugar Charles : 1965 Visit/Account:[id number] Date of Sevice: 10/21/2018 KNEE 3 VIEW LEFT Indication: Pain after fall Comparison: None available Findings: No evidence of fracture, dislocation, or acute osseous abnormality of the left knee. The joint spaces are well-maintained. Enthesopathic changes are noted along the superior patella No evidence of joint effusion. There is no focal soft tissue abnormality. No evidence of radiopaque foreign body. IMPRESSION: 1.No acute osseous abnormality of the left knee Report Dictated By: Conor Estrada at 10/21/2018 7:36 PM Report E-Signed By: Conor Estrada at 10/21/2018 7:36 PM WSN:[id number]
== END 2018-10-21 19:55 | disposition home or self-care (01) ==
LOC: ER 19:46
DX: S83.92XA Sprain of unspecified site of left knee, initial encounter (principal)
CPT/HCPCS: 90471; 90715; 99283

== ENCOUNTER → 2018-10-27 | Outpatient (CLI) | payer BC ==
[2015-02-25 13:42] VITALS: BMI 35.3
--- NOTE | 2018-10-27 12:25 | RADIOLOGY IMAGING REPORT ---
FACILITY: [facility] - [place] PATIENT NAME: HUY REEVES : [id number] MR: [id number] V: [id number] EXAM DATE: [id number] ORDERING PHYSICIAN: LUIS SAMUELS TECHNOLOGIST: Heidi Rivera PROCEDURE:BILATERAL DIGITAL SCREENING MAMMOGRAM WITH CAD ASSISTED INTERPRETATION & 3D TOMOSYNTHESIS COMPARISON:Prior mammograms 07/21/2015, 12/23/2011. INDICATIONS:screening FINDINGS: The breast tissue demonstrates scattered fibroglandular densities. There is no dominant mass, suspicious cluster of calcifications or persistent areas of architectural distortion. TECHNIQUE: BILATERAL CC & MLO 3D TOMOGRAPHIC IMAGES WERE OBTAINED. CAD WAS USED, DIAGNOSTIC CATEGORY 1--NEGATIVE. RECOMMENDATIONS: ROUTINE MAMMOGRAM AND CLINICAL EVALUATION IN 1 YR. IMPRESSION: BIRADS 1: Negative. Dictated by: Zaheer Kowalski M.D. on 10/27/2018 at 11:17 Transcribed by: RUCHI on 10/27/2018 at 11:49 Approved by: Zaheer Kowalski M.D. on 10/27/2018 at 12:24 [facility]
== END ==
LOC: MAMO 00:31
PROVIDERS: ATTEND Internal Medicine Hematology
DX: Z12.31 Encounter for screening mammogram for malignant neoplasm of breast (principal)
CPT/HCPCS: 77063; 77067

== ENCOUNTER → 2018-11-27 | Outpatient (CLI) | payer BC ==
[2015-02-25 13:42] VITALS: BMI 35.3
== END ==
LOC: LAB 07:33
PROVIDERS: ATTEND Family Medicine
DX: E78.5 Hyperlipidemia, unspecified (principal); E66.3 Overweight
CPT/HCPCS: 36415; 82465; 83036; 83718; 84443; 84478

== ENCOUNTER 2018-12-17 16:25 | Emergency (ER) | payer BC ==
[2015-02-25 13:42] VITALS: Wt 78.5 kg
[~2018-12-17 16:25] MED LIST changes: -AMOX1TAB9 PO; -DIATRIZOATE MEGL/DIATRIZOA SOD 367 MG/ML SOLN ONE; -IOPAMIDOL 76% 100 ML INFUS BTL 100 ML ONE
[2018-12-17] MEDS ORDERED: NS(*) 0.9% 1000 ML BAG 1,000 ML IV ONE (16:35)
--- NOTE | 2018-12-17 16:54 | ER Report ---
History and Physical Time Seen By MD: 17:45 Hx. of Stated Complaint: abdominal pain (BAMBI KAN MD) HPI/ROS CHIEF COMPLAINT: Abdominal pain,: Stricture HISTORY OF PRESENT ILLNESS: A 53-year-old female is referred by primary physician for further evaluation of CT concerning for potential cancer as well as abdominal pain. Patient has had one week of symptoms of cramping abdominal pain and intermittent constipation. Patient has history of rectal cancer 4 years ago which was treated with chemotherapy and radiation. Her primary oncology treatment was here and her chemotherapy and radiation were done [facility] [place]. She has had wt loss though as expcted due to diet. She notes occ chills/night sweats though states she's had these for years and attributes to menopause. She denies vomiting/diarrhea/constipation currently. She notes severe LLQ abd pain that she has had since CT with rectal contrast this afternoon. REVIEW OF SYSTEMS: Constitutional: above Eyes: no blurred vision ENT: No sore throat. Cardiovascular: No chest pain, no palpitations. Respiratory: No cough, no shortness of breath. Gastrointestinal: as above Genitourinary: no dysuria Musculoskeletal: No back pain. Skin: No rashes. Neurological: No headache. Remainder of the 14 system rev: Yes (BAMBI KAN MD) Allergies: Coded Allergies: BEE STINGS (Verified Allergy, Severe, AIRWAY OBSTRUCTION, 12/17/18) erythromycin base (Verified Allergy, Severe, SEIZURES AND VOMITING, 12/17/18) hydromorphone (Verified Allergy, Severe, SWELLS UP LIKE A BALOON AND ITCHES REAL BAD, 12/17/18) ketorolac (Verified Allergy, Severe, VOMITING SWELLING UP EYES, 12/17/18) morphine (Verified Allergy, Severe, HEADACHES AND ITCHINESS AND SWELLING, 12/17/18) pregabalin (Verified Allergy, Severe, MIGRAINES, 12/17/18) sumatriptan (Verified Allergy, Severe, THROAT SWELLS SHUT AND SHE STOPS BREATHING, 12/17/18) codeine (Verified Allergy, Intermediate, HIVES AND ITCHINESS, 12/17/18) promethazine (Verified Allergy, Intermediate, 12/17/18) tramadol (Verified Allergy, Mild, NAUSEA, 12/17/18) nalbuphine (Verified Adverse Reaction, Mild, WIRED HER, 12/17/18) Home Meds Active Scripts Hydrocodone Bit/Acetaminophen (HYDROCODON-ACETAMINOPHEN 5-325) 1 Each Tablet, 1 EACH PO Q4H PRN for PAIN, #12 TAB 0 Refills Prov:BAMBI KAN MD 12/17/18 Amoxicillin/Potassium Clav (AMOX TR-K CLV 875-125 MG TAB) 1 Each Tablet, 1 EACH PO Q12H for 10 Days, #20 TAB Prov:BAMBI KAN MD 12/17/18 Reported Medications Buspirone Hcl (BUSPIRONE HCL) 10 Mg Tablet, 10 MG PO BID, #20 TAB 10/08/18 Discontinued Reported Medications Trazodone Hcl (TRAZODONE HCL) 150 Mg Tablet, 150 MG PO QHS 10/08/18 Reviewed Nurses Notes: Yes Old Medical Records Reviewed: Yes (BAMBI KAN MD) Hx Smoking: Yes (3-4 daily) Smoking Status: Current: Every Day Smoker Exposure to Second Hand Smoke?: Yes Hx Substance Use Disorder: No Hx Alcohol Use: Yes (rare) (BAMBI KAN MD) Constitutional Vital Sign - Last 24 Hours 12/17/18 12/17/18 12/17/18 12/17/18 16:35 16:35 16:45 17:00 Temp 98.6 Pulse 69 69 Resp 20 B/P (MAP) 122/70 (87) 122/70 135/66 (89) 142/65 (90) Pulse Ox 90 86 O2 Delivery Room Air 12/17/18 12/17/18 12/17/18 12/17/18 17:15 17:30 17:45 18:00 B/P (MAP) 138/72 (94) 136/68 (90) 136/67 (90) 116/68 (84) Pulse Ox 95 96 12/17/18 12/17/18 12/17/18 12/17/18 18:15 18:31 18:35 18:40 Pulse 59 58 B/P (MAP) 123/71 (88) 137/78 (97) Pulse Ox 91 91 12/17/18 12/17/18 12/17/18 12/17/18 18:45 18:50 18:55 19:00 Pulse 60 64 60 ??? B/P (MAP) 129/66 (87) Pulse Ox 93 91 91 92 12/17/18 12/17/1819 19:05 19:10 19:15 Pulse 63 57 56 Pulse Ox 92 94 94 Intake and Output 12/17/18 12/17/18 12/18/18 15:00 23:00 07:00 Intake Total 1100 ml Balance 1100 ml (ASAD COLEMAN DO) Physical Exam General Appearance: The patient is alert, has no immediate need for airway protection and no signs of toxicity. [ ] Eyes: Pupils equal and round no pallor or injection. ENT, Mouth: Mucous membranes are moist. Respiratory: There are no retractions, lungs are clear to auscultation. Cardiovascular: Regular rate and rhythm. no m/r/g Gastrointestinal: TTP left lower quadrant with guarding. No distension Neurological: alert, oriented, moves all ext Skin: Warm and dry, no rashes. Musculoskeletal: Extremities are nontender, nonswollen and have full range of motion. DIFFERENTIAL DIAGNOSIS: After history and physical exam differential diagnosis was considered for abdominal pain including but not limited to appendicitis, cholecystitis, gastritis and urinary tract infection, perforation, or other complication. (BAMBI KAN MD) Medical Decision Making Data Points Result Diagram: 12/17/18 1650 12/17/18 165 Laboratory Hematology Test 12/17/18 16:30 12/17/18 16:50 Urine Color Yellow Urine Clarity Clear Urine pH 5.0 pH (4.8-9.5) Urine Specific Atwood S3 Urine Protein Negative mg/dL (NEGATIVE) Urine Glucose (UA) Negative mg/dL (NEGATIVE) Urine Ketones Negative mg/dL (NEGATIVE) Urine Blood Small (NEGATIVE) Urine Nitrite Negative (NEGATIVE) Urine Bilirubin Negative (NEGATIVE) Urine Urobilinogen Negative mg/dL (0.2-1.9) Urine Leukocyte Esterase Negative (NEGATIVE) Urine RBC 4 /HPF (0-2/HPF) Urine WBC 1 /HPF (0-5/HPF) Urine Squamous Epithelial Cells Many /LPF (</=FEW) Urine Bacteria Few /HPF (NONE-FEW) Urine Mucus None /HPF (NONE-FEW) Red Blood Count 4.98 M/uL (4.17-5.56) Mean Corpuscular Volume 89.1 fL (80.0-96.0) Mean Corpuscular Hemoglobin 30.3 pg (26.0-33.0) Mean Corpuscular Hemoglobin Concent 34.0 g/dL (32.0-36.0) Red Cell Distribution Width 13.4 % (11.5-14.5) Mean Platelet Volume 7.6 fL (7.2-11.1) Neutrophils (%) (Auto) 71.8 % (39.4-72.5) Lymphocytes (%) (Auto) 16.4 % (17.6-49.6) Monocytes (%) (Auto) 10.3 % (4.1-12.4) Eosinophils (%) (Auto) 0.5 % (0.4-6.7) Basophils (%) (Auto) 1.0 % (0.3-1.4) Nucleated RBC Relative Count (auto) 0.0 /100WBC Neutrophils # (Auto) 5.5 K/uL (2.0-7.4) Lymphocytes # (Auto) 1.3 K/uL (1.3-3.6) Monocytes # (Auto) 0.8 K/uL (0.3-1.0) Eosinophils # (Auto) 0.0 K/uL (0.0-0.5) Basophils # (Auto) 0.1 K/uL (0.0-0.1) Nucleated RBC Absolute Count (auto) 0.00 K/uL Prothrombin Time 12.4 seconds (12.0-14.4) Prothromb Time International Ratio 0.92 Activated Partial Thromboplast Time 30 seconds (23-35) Sodium Level 142 mmol/L (137-145) Potassium Level 3.9 mmol/L (3.5-5.0) Chloride Level 109 mmol/L (98-107) Carbon Dioxide Level 26 mmol/L (22-31) Blood Urea Nitrogen 14 mg/dl (7-18) Creatinine 0.90 mg/dl (0.52-1.04) Glomerular Filtration Rate Calc > 60.0 Random Glucose 112 mg/dl (75-110) Calcium Level 9.6 mg/dl (8.4-10.2) Total Bilirubin 0.3 mg/dl (0.2-1.3) Aspartate Amino Transf (AST/SGOT) 24 U/L (0-35) Alanine Aminotransferase (ALT/SGPT) 28 U/L (0-56) Alkaline Phosphatase 103 U/L (0-126) Total Protein 7.5 g/dl (6.3-8.2) Albumin 4.2 g/dl (3.5-5.0) Lipase 85 U/L (23-300) Chemistry Test 12/17/18 16:30 12/17/18 16:50 Urine Color Yellow Urine Clarity Clear Urine pH 5.0 pH (4.8-9.5) Urine Specific Atwood S3 Urine Protein Negative mg/dL (NEGATIVE) Urine Glucose (UA) Negative mg/dL (NEGATIVE) Urine Ketones Negative mg/dL (NEGATIVE) Urine Blood Small (NEGATIVE) Urine Nitrite Negative (NEGATIVE) Urine Bilirubin Negative (NEGATIVE) Urine Urobilinogen Negative mg/dL (0.2-1.9) Urine Leukocyte Esterase Negative (NEGATIVE) Urine RBC 4 /HPF (0-2/HPF) Urine WBC 1 /HPF (0-5/HPF) Urine Squamous Epithelial Cells Many /LPF (</=FEW) Urine Bacteria Few /HPF (NONE-FEW) Urine Mucus None /HPF (NONE-FEW) White Blood Count 7.7 k/uL (4.5-11.0) Red Blood Count 4.98 M/uL (4.17-5.56) Hemoglobin 15.1 g/dL (12.0-16.0) Hematocrit 44.4 % (34.0-47.0) Mean Corpuscular Volume 89.1 fL (80.0-96.0) Mean Corpuscular Hemoglobin 30.3 pg (26.0-33.0) Mean Corpuscular Hemoglobin Concent 34.0 g/dL (32.0-36.0) Red Cell Distribution Width 13.4 % (11.5-14.5) Platelet Count 373 K/uL (150-450) Mean Platelet Volume 7.6 fL (7.2-11.1) Neutrophils (%) (Auto) 71.8 % (39.4-72.5) Lymphocytes (%) (Auto) 16.4 % (17.6-49.6) Monocytes (%) (Auto) 10.3 % (4.1-12.4) Eosinophils (%) (Auto) 0.5 % (0.4-6.7) Basophils (%) (Auto) 1.0 % (0.3-1.4) Nucleated RBC Relative Count (auto) 0.0 /100WBC Neutrophils # (Auto) 5.5 K/uL (2.0-7.4) Lymphocytes # (Auto) 1.3 K/uL (1.3-3.6) Monocytes # (Auto) 0.8 K/uL (0.3-1.0) Eosinophils # (Auto) 0.0 K/uL (0.0-0.5) Basophils # (Auto) 0.1 K/uL (0.0-0.1) Nucleated RBC Absolute Count (auto) 0.00 K/uL Prothrombin Time 12.4 seconds (12.0-14.4) Prothromb Time International Ratio 0.92 Activated Partial Thromboplast Time 30 seconds (23-35) Glomerular Filtration Rate Calc > 60.0 Calcium Level 9.6 mg/dl (8.4-10.2) Total Bilirubin 0.3 mg/dl (0.2-1.3) Aspartate Amino Transf (AST/SGOT) 24 U/L (0-35) Alanine Aminotransferase (ALT/SGPT) 28 U/L (0-56) Alkaline Phosphatase 103 U/L (0-126) Total Protein 7.5 g/dl (6.3-8.2) Albumin 4.2 g/dl (3.5-5.0) Lipase 85 U/L (23-300) Coagulation Test 12/17/18 16:50 Prothrombin Time 12.4 seconds Prothromb Time International Ratio 0.92 Activated Partial Thromboplast Time 30 seconds Urinalysis Test 12/17/18 16:30 Urine Color Yellow Urine Clarity Clear Urine pH 5.0 pH (4.8-9.5) Urine Specific Atwood S3 Urine Protein Negative mg/dL (NEGATIVE) Urine Glucose (UA) Negative mg/dL (NEGATIVE) Urine Ketones Negative mg/dL (NEGATIVE) Urine Blood Small (NEGATIVE) Urine Nitrite Negative (NEGATIVE) Urine Bilirubin Negative (NEGATIVE) Urine Urobilinogen Negative mg/dL (0.2-1.9) Urine Leukocyte Esterase Negative (NEGATIVE) Urine RBC 4 /HPF (0-2/HPF) Urine WBC 1 /HPF (0-5/HPF) Urine Squamous Epithelial Cells Many /LPF (</=FEW) Urine Bacteria Few /HPF (NONE-FEW) Urine Mucus None /HPF (NONE-FEW) (ASDA COLEMAN DO) EKG/Imaging Imaging X-ray: Three-way abdomen was obtained. I viewed the images myself on the PACS system. My interpretation of the images is: There is no free air into the diaphragm lung mason are clear, nonspecific bowel gas pattern with retained barium throughout the colon. No obvious signs of obstruction or dilated loops of small bowel. There is no air fluid levels.. The radiologist interpretation had no clinically significant variation from this interpretation. (ASAD COLEMAN DO) ED Course/Re-evaluation ED Course 53-year-old female presents with abdominal pain after CT with rectal contrast as well as CT that shows colonic stricture and referral for further management of potential cancer. Patient's labs are unremarkable for acute findings her abdomen though tender does not show signs of free air. I spoke with the vocational nurse lvn nurse practitioner for the cancer center who will get her close follow-up and states that the oncologist or cancer center will call her tomorrow for follow-up. I also have called our surgeon to arrange colonoscopy. Upon our review, pt has findings c/w possible diverticulitis; will treat with unasyn in ED, augmentin, and will fu/ for colonoscopy next wk. (BAMBI KAN MD) ED Course Care assumed at shift change with diagnostic x-rays pending. X-rays were unremarkable. Results are discussed with the patient. She would like to go home on Lortab and Augmentin. Patient was given additional dose of fentanyl 50 g IV for her pain. After returning from x-ray. Decision to Disposition Date: December 17, 2018 Decision to Disposition Time: 19:11 (ASAD COLEMAN DO) Depart Departure Latest Vital Signs Vital Signs Date Time Temp Pulse Resp B/P (MAP) Pulse Ox O2 Delivery O2 Flow Rate FiO2 12/17/18 19:15 56 94 12/17/18 19:00 129/66 (87) 12/17/18 16:35 98.6 20 Room Air (ASAD COLEMAN DO) Impression: Primary Impression: Abdominal pain Condition: Improved Disposition: HOME OR SELF-CARE Referrals: MATTHEW RIZO MD (PCP) 1 Week GARETT LOPEZ MD 5 Days CHUY ROGERS MD 5 Days his office will call for colonoscopy. he has next friday at 3pm available, or further out if you need New Scripts Hydrocodone Bit/Acetaminophen (HYDROCODON-ACETAMINOPHEN 5-325) 1 Each Tablet 1 EACH PO Q4H PRN for PAIN, #12 TAB 0 Refills Prov: BAMBI KAN MD 12/17/18 Amoxicillin/Potassium Clav (AMOX TR-K CLV 875-125 MG TAB) 1 Each Tablet 1 EACH PO Q12H for 10 Days, #20 TAB Prov: BAMBI KAN MD 12/17/18 Patient Instructions: Abdominal Pain (ED), Diverticulitis (ED) Additional Instructions: As we discussed, it is unclear from your CT if the finding is diverticulitis or another process. We are treating you with antibiotics because there are signs that are consistent with diverticulitis. Please return immediately for worsening symptoms or any concerns. Problem Qualifiers Primary Impression: Abdominal pain Abdominal location: left lower quadrant Qualified Codes: R10.32 - Left lower quadrant pain BAMBI KAN MD December 17, 2018 16:54 ASAD COLEMAN DO December 17, 2018 19:12
[2018-12-17] MEDS ORDERED: fentaNYL CITR 100 MCG/2 ML AMP IVP ONE ×3 (16:55→18:35)
[2018-12-17 17:12] LABS: PLATELET COUNT, AUTOMATED 373 K/uL (150-450)
[2018-12-17 17:16] LABS: INR 0.92
[2018-12-17] MEDS ORDERED: GLYCOPYRROLATE 0.2MG/ML 1 ML INJ IVP ONE (17:25)
[2018-12-17] MEDS ORDERED: AMPICILLIN/SULBACT (*) 3 GM VL 3 GM in NS(*) 0.9% 100 ML MINI-BAG 100 ML IVPB ONE (17:50)
[2018-12-17] MEDS ORDERED: AMOX1TAB9 PO (18:01)
[2018-12-17] MEDS ORDERED: LOR5/325 PO (18:11)
[2018-12-17 19:00] VITALS: BP 129/66
--- NOTE | 2018-12-17 19:20 | RADIOLOGY IMAGING REPORT ---
FACILITY: [facility] - [place] PATIENT NAME: Sugar Charles : 1965 MR: [id number] V: [id number] EXAM DATE: ORDERING PHYSICIAN: BAMBI KAN TECHNOLOGIST: Location: [facility] [place] Patient: Sugar Charles : 1965 Visit/Account:[id number] Date of Sevice: 12/17/2018 Examination: ACUTE ABDOMEN SERIES 3 VIEW Comparison: CT abdomen and pelvis same day. History: severe abd pain after ct with rectal contrast Findings: Cardiac and hilar contour size is within normal limits. No consolidation, nodule, or peribr onchial inflammation. No pneumothorax, edema, or effusion. No pneumoperitoneum. Small bowel gas pattern is unremarkable. Contrast is present throughout the nond istended colon. There are numerous colonic diverticula. No definite evidence of contrast extravasatio n. Excreted contrast is also noted in the urinary bladder. Cholecystectomy clips. Mild degenerative change throughout the osseous structures. IMPRESSION: 1. No findings of acute cardiopulmonary disease. 2. No radiographic evidence of pneumoperitoneum. 3. Nonobstructive bowel gas pattern. 4. Nondistended contrast containing colon with numerous colonic diverticula. Report Dictated By: Konrad Tena MD at 12/17/2018 7:12 PM Report E-Signed By: Konrad Tena MD at 12/17/2018 7:16 PM WSN:[id number]
== END 2018-12-17 19:19 | disposition home or self-care (01) ==
LOC: ER 16:41
DX: R10.32 Left lower quadrant pain (principal)
CPT/HCPCS: 74022; 81001; 83690; 85025; 85610; 85730; 96361; 96365; 96375; 96376; 99284; J0295; J3010; J3490; J7030; 82040; 82247; 82310; 82374; 82435; 82565; 82947; 84075; 84132; 84155; 84295; 84450; 84460; 84520

== ENCOUNTER → 2018-12-17 | Outpatient (CLI) | payer BC ==
[2015-02-25 13:42] VITALS: BMI 35.3
[~2018-12-17] MED LIST changes: +AMOX1TAB9 PO; +DIATRIZOATE MEGL/DIATRIZOA SOD 367 MG/ML SOLN ONE; +IOPAMIDOL 76% 100 ML INFUS BTL 100 ML ONE
--- NOTE | 2018-12-17 14:27 | RADIOLOGY IMAGING REPORT ---
FACILITY: [facility] - [place] PATIENT NAME: Sugar Charles : 1965 MR: [id number] V: [id number] EXAM DATE: ORDERING PHYSICIAN: MATTHEW RIZO TECHNOLOGIST: Location: [facility] - [place] Patient: Sugar Charles : 1965 Visit/Account:[id number] Date of Sevice: 12/17/2018 CT ABDOMEN PELVIS W/ CON HISTORY: 53-year-old female with vaginal discharge and abdominal pain, history of rectal cancer. TECHNIQUE: CT abdomen and pelvis with intravenous contrast. Contiguous axial images of the abdomen and pelvis was performed from the lung bases to the symphysis pubis. Rectal contrast was also used. D elayed prone imaging of the pelvis was performed. One of the following dose optimization techniques was utilized in the performance of this exam: Autom ated exposure control; adjustment of the mA and/or kV according to the patient's size; or use of an i terative reconstruction technique. Specific details can be referenced in the facility's radiology C T exam operational policy. CONTRAST: 75 cc of Isovue-370, rectal contrast was also used COMPARISON: 05/14/2017 FINDINGS: Visualized lung bases: Negative. Hepatobiliary: Gallbladder is absent. There is fatty infiltration of liver. Heterogeneity segment IV b of the liver near the falciform ligament is stable likely focal fat. Spleen: Negative. Adrenals: Negative. Kidneys/: Bladder and vagina are unremarkable. No visualized fistula to the vagina. Pancreas: Negative. GI: There is diverticulosis but no evidence for diverticulitis or rectovaginal fistula. Vessels/spaces/nodes: Atherosclerotic calcification is noted. Bones/soft tissues: Sclerotic focus left femoral head is stable. Degenerative changes are noted in t he facets. IMPRESSION: 1. No acute pathology in the abdomen or pelvis. No definite recurrent or metastatic disease. 2. No visible fistula to the vagina. Report Dictated By: Zaheer Kowalski MD at 12/17/2018 2:13 PM Report E-Signed By: Zaheer Kowalski MD at 12/17/2018 2:22 PM WSN:[id number]
== END ==
LOC: CT 00:07
PROVIDERS: ATTEND Family Medicine
DX: N89.8 Other specified noninflammatory disorders of vagina (principal); R10.9 Unspecified abdominal pain; Z85.048 Personal history of other malignant neoplasm of rectum, rectosigmoid junction, and anus
CPT/HCPCS: 74177; Q9967

== ENCOUNTER 2018-12-24 16:00 | Outpatient (RCR) | payer BC ==
[2015-02-25 13:42] VITALS: Wt 77.6 kg
[~2018-12-24 16:00] MED LIST changes: +AMOX1TAB9 PO; -OMEP-125 PO; +OMEP-126 PO; -RANI-366 PO; +RANI-54 PO
[2018-12-24 16:11] VITALS: BP 122/73
--- NOTE | 2018-12-25 08:12 | [facility] ONCOLOGY NOTE ---
EVENT DATE: December 24, 2018 DIAGNOSES 1. 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 2. Fibromyalgia. 3. Depression. 4. Anxiety. 5. Osteoarthritis. 6. Type 2 diabetes. 7. Chronic obstructive pulmonary disease/asthma. CHIEF COMPLAINT The patient is here today for followup of her anal carcinoma with recent vaginal bleeding and left groin pain. ONCOLOGY HISTORY Sugar Charles is a 52-year-old female. PRESENTATION Lower pelvic pressure and a decrease in caliber of stools with a small amount of blood with bowel movements. DIAGNOSTIC EVALUATION Endoscopic evaluation by Dr. Wilkes done January 12, 2015. Upper endoscopy was also done. By endoscopy, there was no discrete mass, but an area of firmness in the anal canal. Biopsy was done. This area measured about 0.5 cm. 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 Tumor is human papillomavirus positive, p16. STAGING WORKUP PET/CT scan done on January 25, 2015, revealed focal uptake in the anal canal with SUV of 4, but no local or systemic metastasis. STAGE T1/T2 N0 M0. TREATMENT The patient received chemoradiation. She received two cycles of mitomycin, 5- FU, leucovorin between February 15, 2015, through March 17, 2015. HISTORY OF PRESENT ILLNESS The patient is here today for followup of her anal carcinoma. She presented recently with vaginal bleeding with left groin pain and patient had CT abdomen and pelvis done on December 17, 2018, which came back negative for recurrent cancer but there was evidence of diverticulosis without diverticulitis. Patient was given diagnosis of diverticulitis and started on antibiotic. Her pain has got better and she is scheduled next week to have a colonoscopy by Dr. Rodriguez. She is using ibuprofen and Tylenol to control her pain but she is complaining also of some constipation. She has intentional loss of weight but she is feeling chilly for the last few weeks. She has generalized all over joint pain. She has also tingling and numbness in the hands and feet. She is weak, tired and fatigued. PAST MEDICAL HISTORY 1. Fibromyalgia diagnosed 2003. 2. Osteoarthritis. 3. Type 2 diabetes. 4. COPD. 5. Asthma. 6. Chronic anxiety. 7. Hypercholesterolemia. 8. Osteoporosis. 9. History of depression. PAST SURGICAL HISTORY 1. Hemorrhoidectomy. 2. Multiple laparoscopic surgeries. 3. Cholecystectomy. 4. Two partial hysterectomies. 5. Appendectomy. 6. Resection of cyst removal from a finger. FAMILY HISTORY Mother had breast cancer, and a maternal grandfather with some sort of cancer. SOCIAL HISTORY The patient is a with one daughter and one stepson. She is unemployed. She is a smoker who is up to half-pack a day for 30 years. Denies any abuse of alcohol or illicit drugs. CURRENT MEDICATIONS 1. Robaxin 500 mg twice daily. 2. Albuterol 6.7 gm inhaler, one to two puffs as needed. 3. Zyrtec 10 mg daily. 4. Cymbalta 60 mg daily. 5. Trazodone 150 mg at bedtime. 6. Calcium/vitamin D 600 mg one tablet daily. 7. Protonix 20 mg daily. 8. Levothyroxine 25 mcg daily. ALLERGIES 1. CODEINE. 2. ERYTHROMYCIN BASE. 3. HYDROMORPHONE. 4. KETOROLAC. 5. MORPHINE. 6. NALBUPHINE. 7. PREGABALIN. 8. SUMATRIPTAN. 9. TRAMADOL. REVIEW OF SYSTEMS CONSTITUTIONAL: Patient has some chills and intentional loss of weight. HEENT: Ears: No tinnitus or hearing problem. Nose: No nasal discharge or epistaxis. Throat: No sore throat or mouth ulcers. Eyes: No diplopia or visual changes. RESPIRATORY: No shortness of breath. No cough, expectoration or hemoptysis. CARDIOVASCULAR: No chest pain, orthopnea, or paroxysmal nocturnal dyspnea (PND). No edema. No palpitations. GASTROINTESTINAL: She has constipation, under control currently with Tylenol and ibuprofen. GENITOURINARY: She presented with vaginal bleeding for two episodes and was associated with left groin pain. MUSCULOSKELETAL: She has generalized joint pain. NEUROLOGICAL: She has tingling and numbness in the hands and feet. HEMATOLOGIC/LYMPHATIC: She is weak, tired and fatigued. SKIN: No skin rash or lumps. PSYCHIATRIC: No anxiety or depression. PHYSICAL EXAMINATION GENERAL: Looks stable. Well-developed, well-nourished, and in no acute distress. VITAL SIGNS: Blood pressure 122/73, pulse 67 per minute, respirations 16 per minute, temperature 98, pulse oximetry 92% on room air. HEENT: Head: Atraumatic. No sinus tenderness to palpation. Eyes: No icterus or conjunctivitis. Mouth and throat: No oral thrush or mucositis. NECK: Supple. No cervical or supraclavicular lymphadenopathy. LUNGS: Clear to auscultation and percussion bilaterally. HEART: Regular rate and rhythm. No gallops, murmurs, clicks or rubs. ABDOMEN: Soft and lax. No tenderness. No hepatosplenomegaly. No masses. EXTREMITIES: No cyanosis, clubbing or edema. LYMPHATICS: No peripheral lymphadenopathy. NEUROLOGICAL: Conscious, alert and oriented times three. No focal motor or sensory deficits. PSYCHIATRIC: Mood and affect appear normal. SKIN: No skin rash, bruise or purpuric eruption. DIAGNOSTIC DATA Chem panel normal except chloride 109, blood sugar 112. CBC showed white count 7.7, hemoglobin 15.1, hematocrit 44.4, platelets 373,000. CT abdomen and pelvis on December 17, 2018 was negative for recurrent disease. There was evidence of diverticulosis without diverticulitis. ASSESSMENT 1. 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 The tumor was human papilloma virus positive, and p16 was positive. CT scan done on January 22, 2015, was positive for anal carcinoma with SUV of 4 with no local or systemic metastasis. The patient received chemoradiation with two cycles of mitomycin and 5-FU, received between February 15, 2015, through March 17, 2015. Repeat PET/CT scan October 30, 2015, did not show any local or systemic metastasis. The area of the anal canal which had an SUV of 4 became 2 after her treatment. The patient was in complete remission since then. She presented recently with vaginal bleeding and severe left groin pain and her CT scan of the abdomen and pelvis done on December 17, 2018 did not show any evidence of recurrent disease but she had diverticulosis without diverticulitis. Patient was treated for provisional diagnosis of diverticulitis. She is scheduled to have a colonoscopy by Dr. Rodriguez next week. I will await the results of that colonoscopy and if still there is suspicion of malignancy I will consider to do a PET CT scan for further evaluation. I explained that to the patient and she is agreeable with the plan of management. 2. Fibromyalgia. 3. Depression and anxiety. 4. Osteoarthritis of the left hip. 5. Type 2 diabetes. 6. Chronic obstructive pulmonary disease. PLAN 1. Await the results of the colonoscopy scheduled next week. 2. Consider PET CT scan. 3. Patient to keep her scheduled appointment if her investigations will come back negative. 4. The patient to contact us for any new concerns or complaints. ALDO
[2019-01-10] MEDS ORDERED: AMOX-559 PO (19:36)
== END 2019-02-01 15:28 | disposition home or self-care (01) ==
LOC: ONC 16:00
PROVIDERS: ATTEND Internal Medicine Hematology
DX: Z85.048 Personal history of other malignant neoplasm of rectum, rectosigmoid junction, and anus (principal); M79.7 Fibromyalgia; F32.9 Major depressive disorder, single episode, unspecified; F41.9 Anxiety disorder, unspecified; M16.12 Unilateral primary osteoarthritis, left hip; E11.9 Type 2 diabetes mellitus without complications; J44.9 Chronic obstructive pulmonary disease, unspecified; F17.210 Nicotine dependence, cigarettes, uncomplicated; R53.83 Other fatigue; R53.1 Weakness
CPT/HCPCS: 99212

== ENCOUNTER 2018-12-31 01:10 | Day surgery (SDC) | payer BC ==
[2015-02-25 13:42] VITALS: Ht 165.1 cm; Wt 76.2 kg
--- NOTE | 2018-12-28 11:41 | RADIOLOGY IMAGING REPORT ---
FACILITY: [facility] [place] PATIENT NAME: Sugar Charles : 1965 MR: [id number] V: [id number] EXAM DATE: ORDERING PHYSICIAN: CHUY ROGERS TECHNOLOGIST: Location: [facility] Patient: Sugar Charles : 1965 Visit/Account:[id number] Date of Sevice: 12/28/2018 2 VIEWS CHEST INDICATION: COPD, smoker COMPARISON: X-rays examination chest September 06, 2017 FINDINGS: Heart size within normal limits. Lungs are without new infiltrate, failure, effusion or pneumothorax. Multilevel spondylosis without a cute bony finding. IMPRESSION: 1. No acute cardiopulmonary process. Report Dictated By: Avtar Melendez MD at 12/28/2018 11:37 AM Report E-Signed By: Avtar Melendez MD at 12/28/2018 11:38 AM WSN:[id number]
[~2018-12-31] VITALS: Ht 165.1 cm; Wt 76.2 kg
[~2018-12-31 01:10] MED LIST changes: +OMEP-125 PO; -OMEP-126 PO; +RANI-366 PO; -RANI-54 PO
[2018-12-31 09:08] VITALS: BP 127/67
[2018-12-31] MEDS ORDERED: PROPOFOL EMUL(*) 10MG/ML 20 ML 40 ML ONE (09:15)
[2018-12-31] MEDS ORDERED: LIDOCAINE MPF 1% 5 ML VIAL ONE (09:15)
[2018-12-31] MEDS ORDERED: NORMOSOL R SOLN(*) 1000 ML BAG 1,000 ML IV PRN (09:30)
[2018-12-31] MEDS ORDERED: LIDOCAINE/SOD BICARB 8.4% SYR ID ONE (09:30)
[2018-12-31] MEDS ORDERED: MIDAZOLAM 2 MG/2 ML VIAL IVP PRN (10:20)
[2018-12-31 10:59] VITALS: BP 112/65
--- NOTE | 2018-12-31 11:08 | Short(Outpt) Discharge Summary ---
Discharge Summary Reason for Hosp/Final Diag: (1) Abnormal CT scan, colon Status: Chronic Hospital Course & Plan: Colonoscopy completed without problems. Small descending colon polyp removed. Sigmoid diverticulosis. No active inflammation, no cancer. Pain and CT finds c/w diverticulitis. (2) History of anal cancer Status: Chronic (3) Abdominal pain Status: Chronic Departure Discharge to: Home, Self Care Discharge Instructions Home Meds Active Scripts Amoxicillin/Potassium Clav (AMOX TR-K CLV 875-125 MG TAB) 1 Each Tablet, 1 EACH PO Q12H for 10 Days, #20 TAB Prov:BAMBI KAN MD 12/17/18 Reported Medications Buspirone Hcl (BUSPIRONE HCL) 10 Mg Tablet, 10 MG PO BID, #20 TAB 10/08/18 Discontinued Scripts Hydrocodone Bit/Acetaminophen (HYDROCODON-ACETAMINOPHEN 5-325) 1 Each Tablet, 1 EACH PO Q4H PRN for PAIN, #12 TAB 0 Refills Prov:BAMBI KAN MD 12/17/18 Follow up Referrals: General Surgery - 01/20/19 @ Surgery, General with CHUY ROGERS MD You have a follow up appointment scheduled with Dr. Rogers on 01/20/19, at 4:00pm. Diet: Regular Activity: As Tolerated Special Instructions: Your colonoscopy was completed without any problems and your prep was excellent (Good Job!!). I removed a small polyp from your colon and it was sent to pathology. I didn't find any active inflammation or any cancer. The area of inflammation on CT was most consistent with diverticulitis that is now better. I will see you back in my office at your follow up appointment to see how you're doing and discuss your pathology results with you. Problem Qualifiers (1) Abdominal pain: Abdominal location: left lower quadrant Qualified Codes: R10.32 - Left lower quadrant pain CHUY ROGERS MD December 31, 2018 11:08
[2018-12-31 11:12] VITALS: BP 127/71
[2018-12-31 11:30] VITALS: BP 116/73
[2018-12-31 11:32] VITALS: BP 131/80
--- NOTE | 2018-12-31 11:47 | OPERATIVE REPORT 1 ---
EVENT DATE: December 31, 2018 SURGEON: Sonny Rodriguez MD ANESTHESIOLOGIST: Gulshan Lacy MD ANESTHESIA: TIVA PREOPERATIVE DIAGNOSIS 1. Left lower quadrant abdominal pain. 2. Findings of thickening in her descending colon on CT scan. 3. History of squamous cell anal cancer. POSTOPERATIVE DIAGNOSIS 1. Left lower quadrant abdominal pain. 2. Findings of thickening in her descending colon on CT scan. 3. History of squamous cell anal cancer. PROCEDURE PERFORMED Colonoscopy. COMPLICATIONS None. CONDITION Stable. ESTIMATED BLOOD LOSS Minimal. FINDINGS This patient's prep was excellent. Withdrawal time was 13 minutes. She did have a very small polyp in the descending colon that was removed with snare and also with biopsy forceps. No other findings to account for the CT findings making the likelihood that her findings were related to diverticulitis as suspected which has been adequately treated with antibiotics. INDICATIONS This is a 53-year-old female that was referred to me for colonoscopy. She was seen in the emergency room with left lower quadrant abdominal pain. A CT scan showed thickening in the descending colon that was not clearly diverticulitis. We treated her empirically for diverticulitis and her symptoms seemed to get better, although she does report still being in pain today. Because of this finding, I consented her for colonoscopy. DESCRIPTION OF PROCEDURE The patient was brought to the endoscopy room, placed in the left lateral decubitus position on her gurney and TIVA anesthesia was administered. Digital rectal exam was completed which was unremarkable. I closely inspected her anus for any signs of cancer and found none. I then lubricated the scope and inserted into her rectum through her anus, and then advanced the scope all the way through to the cecum without any problems. I withdrew the scope, looked at all mucosal surfaces for any abnormalities. In the descending colon was a small, approximately 5 mm polyp which I removed partially with a snare and then removed the rest with hot forceps but without cautery and then I cauterized the area when this was completed. There was still some oozing which I controlled easily with an Endoclip. I withdrew the scope the rest of the way and found no other abnormalities other than diverticula, a few in her descending colon but mostly in her sigmoid colon. There was no active inflammation. Retroflexion view of her rectum was somewhat difficult because her rectal volume is fairly small, but I was able to see the perianal, upper anal canal, distal rectal tissues and no abnormalities were in this area. I straightened the scope, desufflated the rectum and then removed the scope from her body. She was then brought to the recovery area in good condition having tolerated the procedure without any apparent problems. ALDO
[2018-12-31 12:02] VITALS: BP 141/71
== END 2018-12-31 12:18 | disposition home or self-care (01) ==
LOC: OR 01:10
PROVIDERS: ATTEND Surgery
DX: K63.5 Polyp of colon (principal); Z85.048 Personal history of other malignant neoplasm of rectum, rectosigmoid junction, and anus
CPT/HCPCS: 00811; 45385; 71046; 88305; J2001; J2250; J2704

== ENCOUNTER 2019-01-10 17:58 | Emergency (ER) | payer BC ==
[2015-02-25 13:42] VITALS: Wt 77.1 kg
[~2019-01-10 17:58] MED LIST changes: -OMEP-125 PO; +OMEP-126 PO; -RANI-366 PO; +RANI-54 PO
--- NOTE | 2019-01-10 18:12 | ER Report ---
History and Physical Time Seen By MD: 18:12 Hx. of Stated Complaint: PT REPORTS FEELS LIKE THROAT IS SWELLING, HOARSE VOICE, COUGH HPI/ROS CHIEF COMPLAINT: sore throat HISTORY OF PRESENT ILLNESS: 53 year old female presents to ED with sore throat. Reports the sore throat started on . States it is a sharp pain that hurts to swallow and talk. Patient states the pain hurts from above her collarbones up to her ears. Reports along with the sore throat, it feels like her throat is swollen and has a hoarse voice with the swollen throat. Reports associated symptoms of productive cough and sinus pressure that has been present since Friday. States the cough is productive. She has a hx of asthma, but left her albuterol inhaler at work, so has not used it for a couple of days. Reports she has SOB and chest tightness. REVIEW OF SYSTEMS: Constitutional: Reports fevers. HENT: Reports sinus pain/pressure. States she has a large headache if she bends over. Reports ear pain. Reports sore and swollen throat as noted above. Hoarse voice. Respiratory: Reports cough, dyspnea, chest tightness. Cardiovascular: No chest pain. No palpitations. Gastrointestinal: No vomiting, no abdominal pain. Musculoskeletal: No back pain. Allergies: Coded Allergies: BEE STINGS (Verified Allergy, Severe, AIRWAY OBSTRUCTION, 01/10/19) erythromycin base (Verified Allergy, Severe, SEIZURES AND VOMITING, 01/10/19) hydromorphone (Verified Allergy, Severe, SWELLS UP LIKE A BALOON AND ITCHES REAL BAD, 01/10/19) ketorolac (Verified Allergy, Severe, VOMITING SWELLING UP EYES, 01/10/19) morphine (Verified Allergy, Severe, HEADACHES AND ITCHINESS AND SWELLING, 01/10/19) pregabalin (Verified Allergy, Severe, MIGRAINES, 01/10/19) sumatriptan (Verified Allergy, Severe, THROAT SWELLS SHUT AND SHE STOPS BREATHING, 01/10/19) codeine (Verified Allergy, Intermediate, HIVES AND ITCHINESS, 01/10/19) promethazine (Verified Allergy, Intermediate, 01/10/19) tramadol (Verified Allergy, Mild, NAUSEA, 01/10/19) nalbuphine (Verified Adverse Reaction, Mild, WIRED HER, 01/10/19) Home Meds Active Scripts Amoxicillin/Pot Clav 875-125 Mg Tab (AUGMENTIN 875-125 TABLET) 1 Each Tablet, 1 TAB PO Q12H, #12 TAB Prov:KP MANN JEFF 01/10/19 Reported Medications Buspirone Hcl (BUSPIRONE HCL) 10 Mg Tablet, 10 MG PO BID, #20 TAB 10/08/18 Discontinued Scripts Amoxicillin/Potassium Clav (AMOX TR-K CLV 875-125 MG TAB) 1 Each Tablet, 1 EACH PO Q12H for 10 Days, #20 TAB Prov:BAMBI KAN MD 12/17/18 Past Medical/Surgical History Past medical hx of CVA in 2000, seizures from a drug reaction, migraines, angina, hypercholesterolemia, asthma, pneumonia, COPD, rectal cancer 01/2015, possible fatty liver, incontinence, osteomylitis in right hip, fibromyalgia, arthritis, osteoporosis, bilateral wrist fractures, back pain, degenerative disc disease, thyroid disorder, depression, anxiety, past anorexia, panic attacks, suicide attempt. Past surgical hx of lap gaurav 2002, appendectomy 1988, hemorroid surgery 2006, hysterectomy, left carpal tunnel release 1986, cyst removed on left middle finger. Reviewed Nurses Notes: Yes Hx Smoking: Yes (3-4 daily) Smoking Status: Current: Every Day Smoker Exposure to Second Hand Smoke?: Yes Hx Substance Use Disorder: No Hx Alcohol Use: Yes (rare) Constitutional Vital Sign - Last 24 Hours 01/10/19 01/10/19 01/10/19 01/10/19 17:58 18:02 18:03 18:13 Temp 99.4 Pulse ??? 67 63 Resp 20 B/P (MAP) 132/64 (86) 132/64 Pulse Ox 90 92 O2 Delivery Room Air 01/10/19 01/10/19 01/10/19 01/10/19 18:28 18:30 18:43 18:58 Pulse 63 54 54 B/P (MAP) 114/60 (78) Pulse Ox 92 94 96 01/10/19 01/10/19 01/10/19 01/10/19 19:00 19:13 19:28 19:30 Pulse 58 58 B/P (MAP) 111/68 (82) 127/67 (87) Pulse Ox 94 93 Physical Exam General Appearance: The patient is alert, has no immediate need for airway protection and no current signs of toxicity. Eyes: Pupils equal and round no injection. HENT: Hoarse voice. Posterior pharynx without redness or exudate. TM's clear without erythema or bulging bilaterally. No swollen tubernates bilaterally. Reports maxillary sinus pain with palpation. Respiratory: Chest is non tender, lungs are clear to auscultation. Cardiac: regular rate and rhythm Gastrointestinal: Abdomen is soft and non tender, no masses, bowel sounds normal. Musculoskeletal: Neck: Neck is supple and non tender. Extremities have full range of motion and are non tender. Skin: No rashes or lesions. DIFFERENTIAL DIAGNOSIS: After history and physical exam differential diagnosis was considered for sinus infection, strep, asthma exacerbation, upper respiratory infection, bronchitis. Medical Decision Making Data Points Result Diagram: 01/10/192 01/10/19 1812 Laboratory Hematology Test 01/10/19 18:12 01/10/19 18:30 Red Blood Count 4.99 M/uL (4.17-5.56) Mean Corpuscular Volume 88.6 fL (80.0-96.0) Mean Corpuscular Hemoglobin 30.0 pg (26.0-33.0) Mean Corpuscular Hemoglobin Concent 33.8 g/dL (32.0-36.0) Red Cell Distribution Width 13.2 % (11.5-14.5) Mean Platelet Volume 8.1 fL (7.2-11.1) Neutrophils (%) (Auto) 81.6 % (39.4-72.5) Lymphocytes (%) (Auto) 11.0 % (17.6-49.6) Monocytes (%) (Auto) 5.3 % (4.1-12.4) Eosinophils (%) (Auto) 1.2 % (0.4-6.7) Basophils (%) (Auto) 0.9 % (0.3-1.4) Nucleated RBC Relative Count (auto) 0.0 /100WBC Neutrophils # (Auto) 8.9 K/uL (2.0-7.4) Lymphocytes # (Auto) 1.2 K/uL (1.3-3.6) Monocytes # (Auto) 0.6 K/uL (0.3-1.0) Eosinophils # (Auto) 0.1 K/uL (0.0-0.5) Basophils # (Auto) 0.1 K/uL (0.0-0.1) Nucleated RBC Absolute Count (auto) 0.00 K/uL Sodium Level 143 mmol/L (137-145) Potassium Level 3.9 mmol/L (3.5-5.0) Chloride Level 108 mmol/L (98-107) Carbon Dioxide Level 25 mmol/L (22-31) Blood Urea Nitrogen 14 mg/dl (7-18) Creatinine 0.70 mg/dl (0.52-1.04) Glomerular Filtration Rate Calc > 60.0 Random Glucose 134 mg/dl (75-110) Calcium Level 9.7 mg/dl (8.4-10.2) Total Bilirubin 0.2 mg/dl (0.2-1.3) Aspartate Amino Transf (AST/SGOT) 28 U/L (0-35) Alanine Aminotransferase (ALT/SGPT) 43 U/L (0-56) Alkaline Phosphatase 107 U/L (0-126) Total Protein 7.6 g/dl (6.3-8.2) Albumin 4.2 g/dl (3.5-5.0) Group A Streptococcus (PCR) Negative (NEGATIVE) Chemistry Test 01/10/19 18:12 01/10/19 18:30 White Blood Count 10.9 k/uL (4.5-11.0) Red Blood Count 4.99 M/uL (4.17-5.56) Hemoglobin 15.0 g/dL (12.0-16.0) Hematocrit 44.2 % (34.0-47.0) Mean Corpuscular Volume 88.6 fL (80.0-96.0) Mean Corpuscular Hemoglobin 30.0 pg (26.0-33.0) Mean Corpuscular Hemoglobin Concent 33.8 g/dL (32.0-36.0) Red Cell Distribution Width 13.2 % (11.5-14.5) Platelet Count 309 K/uL (150-450) Mean Platelet Volume 8.1 fL (7.2-11.1) Neutrophils (%) (Auto) 81.6 % (39.4-72.5) Lymphocytes (%) (Auto) 11.0 % (17.6-49.6) Monocytes (%) (Auto) 5.3 % (4.1-12.4) Eosinophils (%) (Auto) 1.2 % (0.4-6.7) Basophils (%) (Auto) 0.9 % (0.3-1.4) Nucleated RBC Relative Count (auto) 0.0 /100WBC Neutrophils # (Auto) 8.9 K/uL (2.0-7.4) Lymphocytes # (Auto) 1.2 K/uL (1.3-3.6) Monocytes # (Auto) 0.6 K/uL (0.3-1.0) Eosinophils # (Auto) 0.1 K/uL (0.0-0.5) Basophils # (Auto) 0.1 K/uL (0.0-0.1) Nucleated RBC Absolute Count (auto) 0.00 K/uL Glomerular Filtration Rate Calc > 60.0 Calcium Level 9.7 mg/dl (8.4-10.2) Total Bilirubin 0.2 mg/dl (0.2-1.3) Aspartate Amino Transf (AST/SGOT) 28 U/L (0-35) Alanine Aminotransferase (ALT/SGPT) 43 U/L (0-56) Alkaline Phosphatase 107 U/L (0-126) Total Protein 7.6 g/dl (6.3-8.2) Albumin 4.2 g/dl (3.5-5.0) Group A Streptococcus (PCR) Negative (NEGATIVE) EKG/Imaging Imaging Location: [facility] - [place] Patient: Sugar Charles : 1965 Visit/Account:[id number] Date of Sev: 01/10/2019 Exam type: CHEST PA LAT History: Chest pain, shortness of breath, cough Comparison: 12/28/2018. Findings: Both lungs are well-expanded and clear. There is no focal infiltrate, pleural effusion or pneumothorax. Heart size is normal. The osseous structures are unremarkable. IMPRESSION: 1. No acute cardiopulmonary disease. ED Course/Re-evaluation ED Course Upon arrival to the ED, patient admitted to an exam room, hx and physical obtained, differentials considered. Patient presents to ED with sore throat. Reports the sore throat started on . States it is a sharp pain that hurts to swallow and talk. Patient states the pain hurts from above her collarbones up to her ears. Reports along with the sore throat, it feels like her throat is swollen and has a hoarse voice with the swollen throat. Reports associated symptoms of productive cough, hoarse voice, ear pain, and sinus pressure that has been present since last Friday. States the cough is productive. She has a hx of asthma, but left her albuterol inhaler at work, so has not used it for a couple of days. Reports she has SOB and chest tightness. No chest pain or palpitations. On exam, hoarse voice noted. Posterior pharynx without redness or exudate. TM's clear without erythema or bulging bilaterally. No swollen tubernates bilaterally. Reports maxillary sinus pain with palpation. Heart regular, lungs are clear. IV started. CBC, CMP, chest x-ray, and strep screen ordered. Duoneb ordered. Chest x-ray with no acute cardiopulmonary process. Lab work relatively unremarkable with a 10.9 WBC, slight left shift with 81.6% neutrophils. Strep screen negative. Reported Dunob didn't help her SOB a lot. Discussed lab results with patient and that due to clinical presentation, she likely has a sinusitis. We will go ahead and treat for sinusitis and send her home with an albuterol inhaler.Patient agrees with plan of care. Decision to Disposition Date: Jan 10, 2019 Decision to Disposition Time: 19:34 Depart Departure Latest Vital Signs Vital Signs Date Time Temp Pulse Resp B/P (MAP) Pulse Ox O2 Delivery O2 Flow Rate FiO2 01/10/19 19:30 127/67 (87) 01/10/19 19:28 58 93 01/10/19 18:03 99.4 20 Room Air Impression: Primary Impression: Sinusitis Condition: Improved Disposition: HOME OR SELF-CARE Referrals: MATTHEW RIZO MD (PCP) New Scripts Amoxicillin/Pot Clav 875-125 Mg Tab (AUGMENTIN 875-125 TABLET) 1 Each Tablet 1 TAB PO Q12H, #12 TAB Prov: JOHNATHANKP FNP 01/10/19 Patient Instructions: Sinusitis (ED) Additional Instructions: Increase fluid intake. Get plenty of rest. Take Tylenol or Ibuprofen as needed for pain. Follow up with your primary care provider in the next week. Return to the ER if condition worsens. I would recommend an over the counter decongestant, so continue with the medication that you have been taking. Problem Qualifiers Primary Impression: Sinusitis Sinusitis location: maxillary Chronicity: acute Recurrence: non- recurrent Qualified Codes: J01.00 - Acute maxillary sinusitis, unspecified KP MANN Jan 10, 2019 18:12
[2019-01-10] MEDS ORDERED: MAG HYD/AL HYD/SIMETH 30ML UDC MM ONE (18:35)
[2019-01-10] MEDS ORDERED: LIDOCAINE 2% VISC SLN 15ML UDC MM ONE (18:35)
[2019-01-10] MEDS ORDERED: ALBUTEROL/IPRATROPIUM 3 ML NEB NEB ONE (18:35)
[2019-01-10 18:44] LABS: PLATELET COUNT, AUTOMATED 309 K/uL (150-450)
--- NOTE | 2019-01-10 19:04 | RADIOLOGY IMAGING REPORT ---
FACILITY: [facility] [place] PATIENT NAME: Sugar Charles : 1965 MR: [id number] V: [id number] EXAM DATE: ORDERING PHYSICIAN: KP MANN TECHNOLOGIST: Location: [facility] [place] Patient: Sugar Charles : 1965 Visit/Account:[id number] Date of Sevice: 01/10/2019 Exam type: CHEST PA LAT History: Chest pain, shortness of breath, cough Comparison: 12/28/2018. Findings: Both lungs are well-expanded and clear. There is no focal infiltrate, pleural effusion or pneumothor ax. Heart size is normal. The osseous structures are unremarkable. IMPRESSION: 1. No acute cardiopulmonary disease. Report Dictated By: Zaheer Kowalski MD at 01/10/2019 7:00 PM Report E-Signed By: Zaheer Kowalski MD at 01/10/2019 7:01 PM WSN:[id number]
[2019-01-10 19:30] VITALS: BP 127/67
[2019-01-10] MEDS ORDERED: AMOX-559 PO (19:36)
[2019-01-10] MEDS ORDERED: AMOX/CLAV 875 MG TAB PO ONE (19:40)
[2019-01-10] MEDS ORDERED: ALBUTEROL 8 GM INHALER INH ONE (19:40)
== END 2019-01-10 19:50 | disposition home or self-care (01) ==
LOC: ER 18:09
DX: J01.00 Acute maxillary sinusitis, unspecified (principal); F17.210 Nicotine dependence, cigarettes, uncomplicated
CPT/HCPCS: 71046; 82040; 82247; 82310; 82374; 82435; 82565; 82947; 84075; 84132; 84155; 84295; 84450; 84460; 84520; 85025; 87653; 94640; 99283